=== PATIENT | male | born 1970 | race African-American/Black ===

== ENCOUNTER 2018-03-29 17:21 | Emergency (ER) | payer OTHER ==
[2018-03-29 17:52] VITALS: BP 170/106; PULSE 80; TEMP 98.1; BMI 28.5
[2018-03-29] MEDS ORDERED: CYCLOBENZAPRINE HCL 5 MG TABLET PO ONE (18:21)
[2018-03-29] MEDS ORDERED: KETOROLAC TROMETHAMINE 60 MG/2 ML VIAL IM ONE (18:21)
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
[2018-03-29] MEDS ORDERED: CYCLOBENZAPRINE HCL 10 MG TABLET (FP) ONE (18:23)
[2018-03-29] MEDS ORDERED: KETOROLAC TROMETHAMINE 60 MG/2 ML VIAL ONE (18:24)
[2018-03-30] MEDS ORDERED: CYCLOBENZAPRINE HCL 5 MG TABLET PO ONE (18:22)
--- NOTE | 2018-04-05 10:44 | PDOC ---
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 Neuro intact 04/05/18 11:24 - Medical Decision Making After receiving im Toradol and muscle relaxants feels much improved 04/05/18 11:26
== END 2018-03-29 18:57 | disposition home or self-care (01) ==
LOC: FER 17:21
PROC: 3E0233Z Introduction of Anti-inflammatory into Muscle, Percutaneous Approach (ICD-10-PCS; principal; 2018-03-29)
DX: M54.5 Low back pain (principal); S39.012A Strain of muscle, fascia and tendon of lower back, initial encounter; G89.29 Other chronic pain; X58.XXXA Exposure to other specified factors, initial encounter; Y93.89 Activity, other specified; Y92.9 Unspecified place or not applicable; Y99.0 Civilian activity done for income or pay
CPT/HCPCS: 99282-25

== ENCOUNTER 2018-05-18 10:21 | Emergency (ER) | payer OTHER ==
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
[2018-05-18 10:31] VITALS: BP 140/93; PULSE 81; TEMP 97.8; BMI 29.9
[2018-05-18] MEDS ORDERED: DIPHTH,PERTUSS(ACELL),TET 0.5 ML DISP.SYRIN IM ONE (10:32)
[2018-05-18] MEDS ORDERED: IBUPROFEN 600 MG TABLET (FP) PO ONE ×2 (10:36)
== END 2018-05-18 11:10 | disposition home or self-care (01) ==
LOC: FER 10:21
PROC: 3E0234Z Introduction of Serum, Toxoid and Vaccine into Muscle, Percutaneous Approach (ICD-10-PCS; principal; 2018-05-18)
DX: T22.111A Burn of first degree of right forearm, initial encounter (principal); X17.XXXA Contact with hot engines, machinery and tools, initial encounter; Y93.89 Activity, other specified; Y92.410 Unspecified street and highway as the place of occurrence of the external cause; Y99.0 Civilian activity done for income or pay
CPT/HCPCS: 90715; 99282-25

== ENCOUNTER 2018-06-13 07:33 | Inpatient (IN) | payer OTHER ==
[2018-06-13 08:01] VITALS: BMI 29.9
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
[2018-06-13] MEDS ORDERED: MORPHINE SULFATE 10 MG/1 ML *VIAL ONE (08:20)
[2018-06-13] MEDS ORDERED: SODIUM CHLORIDE 0.9% 1000 ML INFUS.BAG IV ONE (08:21)
[2018-06-13] MEDS ORDERED: morphine CARPU-JECT 4 MG/1 ML DISP.SYRIN IVPUSH ONE ×2 (08:21→11:07)
[2018-06-13 08:43] LABS: BASO % 1.2 % (0-2.0); EOS % 1.6 % (0-4.5); HEMATOCRIT 39.2 % (35.4-49); HEMOGLOBIN 13.9 GM/dL (11.7-16.9); LYMPH % 29.6 % (8-40); MCH 30.9 pg (25.7-33.7); MCHC 35.4 g/dl (32.0-35.9); MEAN CELL VOLUME 87.2 fl (80-96); MEAN PLT VOLUME 10.9 fl (7.5-11.1); MONO % 7.6 % (3.8-10.2); PLATELET COUNT 226 K/MM3 (134-434); RDW 16.4 % (11.9-15.9); WHITE BLOOD COUNT 5.8 K/mm3 (4.0-10.0)
[2018-06-13 09:11] LABS: ACTIVATED PTT 27.5 SECONDS (25.2-36.5); INR 1.09 (0.83-1.09); PROTHROMBIN TIME (PATIENT) 12.3 SEC (9.7-13.0)
[2018-06-13] MEDS ORDERED: PIPERACILLIN/TAZOB 3.375 GM 3.375 GM in DEXTROSE 5%-WATER - 50 ML IVPB ONE ×2 (09:28→21:56)
[2018-06-13] MEDS ORDERED: VANCOMYCIN 1,000 MG in DEXTROSE 5%-WATER - 250 ML IVPB ONE (09:28)
[2018-06-13] MEDS ORDERED: VANCOMYCIN 1 GRAM (PRE-DOCKED) 1,000 MG/250 ML BAG IVPB ONE (09:29)
[2018-06-13] MEDS ORDERED: PIPERACILLIN/TAZOB 3.375 GM 3.375 GM/50 ML BAG IVPB ONE (09:29)
[2018-06-13] MEDS ORDERED: LIDOCAINE HCL 1%, 10 MG/ML (50 mL VIAL) SQ ONE (09:30)
[2018-06-13] MEDS ORDERED: LIDOCAINE HCL 1%, 10 MG/ML (20ML VIAL) ONE (09:32)
[2018-06-13] MEDS ORDERED: LIDOCAINE HCL 2% (20ML MULTI-DOSE VIAL) NR ONE (09:42)
[2018-06-13 10:21] LABS: ANION GAP 8 (8-16); BILIRUBIN,TOTAL 0.4 mg/dL (0.2-1.0); BLOOD UREA NITROGEN 29 mg/dL (7-18); CALCIUM 9.2 mg/dL (8.5-10.1); CHLORIDE 108 mmol/L (98-107); CO2 25 mmol/L (21-32); CREATININE 1.7 mg/dL (0.7-1.3); POTASSIUM 4.7 mmol/L (3.5-5.1); SGOT/AST 30 U/L (15-37); SGPT/ALT 50 U/L (12-78); SODIUM 141 mmol/L (136-145); TOT PROT 7.3 g/dl (6.4-8.2)
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
[2018-06-13 10:36] LABS: ALK PHOS 84 U/L (45-117); GLUCOSE,RANDOM 98 mg/dL (74-106)
[2018-06-13] MEDS ORDERED: MORPHINE SULFATE 2 MG/ML VIAL ONE (11:13)
[2018-06-13] MEDS ORDERED: morphine CARPU-JECT 2 MG/1 ML DISP.SYRIN IVPUSH PRN (11:20)
[2018-06-13] MEDS ORDERED: PANTOPRAZOLE 40 MG TABLET (FP) PO SCH (11:30)
[2018-06-13] MEDS ORDERED: LACTATED RINGERS SOLUTION 1,000 ML IV SCH ×2 (11:30→21:30)
[2018-06-13] MEDS: morphine SULFATE 4 MG/ML VIAL IVPUSH PRN ×2 (12:00→16:19)
[2018-06-13] MEDS ORDERED: ONDANSETRON 4 MG/2 ML VIAL IVPB PRN ×2 (12:38→23:17)
[2018-06-13] MEDS ORDERED: ACETAMINOPHEN 1000 MG/100 ML VIAL (NON FORMULARY) IVPB ONE (13:15)
--- NOTE | 2018-06-13 13:20 | EKG ---
Test Reason : Blood Pressure : / mmHG Vent. Rate : 056 BPM Atrial Rate : 056 BPM P-R Int : 190 ms QRS Dur : 086 ms QT Int : 398 ms P-R-T Axes : 050 034 032 degrees QTc Int : 384 ms SINUS BRADYCARDIA OTHERWISE NORMAL ECG NO PREVIOUS ECGS AVAILABLE Confirmed by KAROLINA MURPHY MD ([id number]) on 06/13/2018 1:20:00 PM Referred By: Confirmed By:KAROLINA MURPHY MD
[2018-06-13] MEDS: DOCUSATE SODIUM 100 MG CAPSULE (FP) PO SCH ×2 (14:00→23:16)
--- NOTE | 2018-06-13 15:43 | CON.ID ---
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 according to the patient his left hand was caught between the trash truck and a 1200 lb box they were emptying and took about half an hour for the hand to be removed he was wearing a protective glove patient was seen by hand surgery and during examination it was found that the patient was unable to move his little finger and also his ring and middle finger having lot of pain . Tetanus is up-to-date. He denies taking anything for pain prior to his arrival. Patient reports having numbness to his left digits but is able to move them. 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) - Alcohol/Substance Use Hx Alcohol Use: Yes (social drinker) History of Substance Use: reports: None - Smoking History Smoking history: Never smoked Have you smoked in the past 12 months: No - Social History ADL: Independent History of Recent Travel: No Home Medications - Allergies Allergies/Adverse Reactions: Allergies Allergy/AdvReac Type Severity Reaction Status Date / Time No Known Drug Allergies Allergy Verified 06/13/18 12:13 - Home Medications Home Medications: Ambulatory Orders NK [No Known Home Medication] 06/13/18 Review of Systems - Review of Systems Constitutional: reports: Other (pain) Eyes: reports: No Symptoms HENT: reports: No Symptoms Neck: reports: No Symptoms Respiratory: reports: No Symptoms Gastrointestinal: reports: No Symptoms Genitourinary: reports: No Symptoms Musculoskeletal: reports: Muscle Pain, Other Integumentary: reports: Wound Neurological: reports: No Symptoms Endocrine: reports: No Symptoms Hematology/Lymphatic: reports: No Symptoms Psychiatric: reports: No Symptoms Physical Exam Vital Signs: Vital Signs Temperature 98.1 F 06/13/18 12:35 Pulse Rate 63 06/13/18 12:35 Respiratory Rate 18 06/13/18 15:00 Blood Pressure 147/95 06/13/18 12:35 O2 Sat by Pulse Oximetry (%) 99 06/13/18 15:00 Constitutional: Yes: Well Nourished, Calm, Mild Distress Eyes: Yes: Conjunctiva Clear HENT: Yes: Atraumatic, Normocephalic Cardiovascular: Yes: Regular Rate and Rhythm Respiratory: Yes: Regular, CTA Bilaterally Gastrointestinal: Yes: Normal Bowel Sounds, Soft Musculoskeletal: Yes: Other Extremities: Yes: Other Wound/Incision: Yes: Dressing Dry and Intact, Reddened Neurological: Yes: Alert, Oriented Psychiatric: Yes: Alert, Oriented Labs: CBC, BMP 06/13/18 08:29 06/13/18 09:35 Imaging - Results Chest X-ray: Report Reviewed, Image Reviewed X-ray: Report Reviewed, Image Reviewed Assessment/Plan Problem List - Problems (1) Crushing injury of left hand, initial encounter Code(s): S67.22XA - CRUSHING INJURY OF LEFT HAND, INITIAL ENCOUNTER (2) Multiple open fractures of phalanx of finger of left hand Code(s): S62.609B - FRACTURE OF UNSP PHALANX OF UNSP FINGER, INIT FOR OPN FX (3) Open fracture of finger of left hand Code(s): S62.609B - FRACTURE OF UNSP PHALANX OF UNSP FINGER, INIT FOR OPN FX Qualifiers: Encounter type: initial encounter Finger: ring finger (4) Mild TBI (traumatic brain injury) Code(s): S06.9X9A - UNSP INTRACRANIAL INJURY W LOC OF UNSP DURATION, INIT Qualifiers: Encounter type: sequela (5) Open fracture of phalanx of finger Code(s): S62.609B - FRACTURE OF UNSP PHALANX OF UNSP FINGER, INIT FOR OPN FX Qualifiers: Encounter type: initial encounter Finger: ring finger plan will start iv abx await for all other reports patient for surgery today await for surgical findings
[2018-06-13] MEDS ORDERED: CLINDAMYCIN 600MG PREMIX IVPB 600 MG/50 ML BAG IVPB SCH (16:15)
[2018-06-13] MEDS ORDERED: PIPERACILLIN/TAZOBACTAM 3.375 GM VIAL IVPB ONE (16:24)
[2018-06-13] MEDS ORDERED: DEXTROSE 5%-WATER - 50 ML IVPB ONE (16:24)
[2018-06-13] MEDS: PIPERACILLIN/TAZOB 3.375 GM 3.375 GM in DEXTROSE 5%-WATER - 50 ML IVPB SCH ×2 (16:25→22:25)
[2018-06-13] MEDS: CLINDAMYCIN 600MG PREMIX IVPB 600 MG/50 ML BAG IVPB SCH ×2 (16:25→23:16)
[2018-06-13] MEDS ORDERED: MIDAZOLAM HCL 2 MG/2 ML SINGLE DOSE VIAL ONE ×2 (16:33)
[2018-06-13] MEDS ORDERED: DEXAMETHASONE SOD PHOSPHATE/PF 10 MG/ML SDV ONE (16:34)
[2018-06-13] MEDS ORDERED: ROPIVACAINE HCL 0.5% 30ML VIAL ONE (16:34)
[2018-06-13] MEDS ORDERED: PROPOFOL 20 ML ONE ×7 (17:56→20:26)
[2018-06-13] MEDS ORDERED: ceFAZolin SODIUM 1 GM VIAL IVPB ONE (18:21)
[2018-06-13] MEDS ORDERED: ceFAZolin SODIUM 1 GM VIAL ONE (18:23)
[2018-06-13] MEDS ORDERED: BACITRACIN 15 GM TUBE TOPICAL OINTMENT ONE (20:47)
[2018-06-13] MEDS ORDERED: ONDANSETRON 4 MG/2 ML VIAL ONE (20:56)
[2018-06-13] MEDS ORDERED: ONDANSETRON 4 MG/2 ML VIAL IVPUSH PRN (21:22)
[2018-06-13] MEDS ORDERED: IBUPROFEN 600 MG TABLET (FP) PO PRN (21:59)
[2018-06-14] MEDS: PIPERACILLIN/TAZOB 3.375 GM 3.375 GM in DEXTROSE 5%-WATER - 50 ML IVPB SCH ×3 (01:16→18:25)
[2018-06-14] MEDS: CLINDAMYCIN 600MG PREMIX IVPB 600 MG/50 ML BAG IVPB SCH ×3 (01:16→18:22)
[2018-06-14] MEDS: morphine SULFATE 4 MG/ML VIAL IVPUSH PRN ×4 (02:53→20:14)
[2018-06-14] MEDS: DOCUSATE SODIUM 100 MG CAPSULE (FP) PO SCH ×3 (06:47→22:00)
[2018-06-14] MEDS ORDERED: PIPERACILLIN/TAZOBACTAM 3.375 GM VIAL IVPB ONE ×2 (09:12→17:06)
[2018-06-14] MEDS ORDERED: DEXTROSE 5%-WATER - 50 ML IVPB ONE ×2 (09:13→17:07)
--- NOTE | 2018-06-14 09:24 | PN ---
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 The patient states that his left was caught between the trash truck and a 1200 lb box they were emptying. He was trapped and took about 30 minutes to get extricated. stable overnight. no complaints. - Current Medication List Current Medications: Active Medications Acetaminophen (Tylenol -) 650 mg PO Q6H PRN PRN Reason: PAIN LEVEL 1-5 Docusate Sodium (Colace -) 100 mg PO TID JT Last Admin: 06/14/18 06:47 Dose: 100 mg Clindamycin Phosphate (Cleocin 600 Mg Premix Ivpb -) 600 mg in 50 mls @ 100 mls /hr IVPB Q8H-IV JT; Protocol Last Admin: 06/14/18 01:16 Dose: Not Given Piperacillin Sod/Tazobactam (Sod 3.375 gm/ Dextrose) 50 mls @ 100 mls/hr IVPB Q8H-IV JT; Protocol Last Admin: 06/14/18 01:16 Dose: Not Given Ibuprofen (Motrin -) 600 mg PO Q6H PRN PRN Reason: PAIN LEVEL 1-5 Last Admin: 06/14/18 02:31 Dose: 600 mg Morphine Sulfate (Morphine Sulfate) 4 mg IVPUSH Q4H PRN PRN Reason: PAIN LEVEL 7 - 10 Last Admin: 06/14/18 06:56 Dose: 4 mg Ondansetron HCl (Zofran Injection) 8 mg IVPB Q6H PRN PRN Reason: NAUSEA Pantoprazole Sodium (Protonix -) 40 mg PO DAILY [facility] - Objective Vital Signs: Vital Signs Temperature 97.7 F 06/14/18 06:00 Pulse Rate 54 L 06/14/18 06:00 Respiratory Rate 20 06/14/18 06:00 Blood Pressure 147/92 06/14/18 06:00 O2 Sat by Pulse Oximetry (%) 96 06/14/18 03:10 Vital Signs Period Temp Pulse Resp BP Sys/Pedro Pulse Ox Last 24 Hr 97.7 F-98.7 F 54-79 13-20 119-191/68-102 96-100 Constitutional: Yes: Well Nourished, No Distress, Calm Eyes: Yes: Conjunctiva Clear, EOM Intact HENT: Yes: Atraumatic, Normocephalic Neck: Yes: Supple, Trachea Midline Cardiovascular: Yes: Regular Rate and Rhythm, S1, S2 Respiratory: Yes: Regular, CTA Bilaterally Gastrointestinal: Yes: Normal Bowel Sounds, Soft Extremities: No: Cool, Cyanosis Integumentary: Yes: Incision. No: Jaundice, Pressure Ulcer Wound/Incision: Yes: Clean/Dry, Well Approximated, Dressing Dry and Intact Neurological: Yes: Alert, Oriented Psychiatric: Yes: Alert, Oriented Labs: CBC, BMP 06/13/18 08:29 06/13/18 09:35 INR, PTT INR 1.09 (0.83-1.09) 06/13/18 08:29 Problem List - Problems (1) Crushing injury of left hand, initial encounter Assessment/Plan: 47yo male with left hand crush injury sustained at work POD#1 s/p Irrigation and Debridement of left hand wound, External fixation of small ring and middle ray, primary repair of radial ulnar digital nerve of ring and small fingers and radial digital artery ring finger. Regular diet OOB an ambulate IV antibiotics per ID Incentive spirometer plan to return to OR monday06/18/2018 for ORIF Analgesia Code(s): S67.22XA - CRUSHING INJURY OF LEFT HAND, INITIAL ENCOUNTER (2) Multiple open fractures of phalanx of finger of left hand Code(s): S62.609B - FRACTURE OF UNSP PHALANX OF UNSP FINGER, INIT FOR OPN FX (3) Open fracture of finger of left hand Code(s): S62.609B - FRACTURE OF UNSP PHALANX OF UNSP FINGER, INIT FOR OPN FX Qualifiers: Encounter type: initial encounter Finger: ring finger (4) Mild TBI (traumatic brain injury) Code(s): S06.9X9A - UNSP INTRACRANIAL INJURY W LOC OF UNSP DURATION, INIT Qualifiers: Encounter type: sequela (5) Open fracture of phalanx of finger Code(s): S62.609B - FRACTURE OF UNSP PHALANX OF UNSP FINGER, INIT FOR OPN FX Qualifiers: Encounter type: initial encounter Finger: ring finger
--- NOTE | 2018-06-14 09:29 | OP ---
Operative Note - Note: Operative Date: 06/13/18 Pre-Operative Diagnosis: Left hand crush injury open fractures and tendon, vessel and nerve involvement Operation: Irrigation and Debridement of left hand wound. External fixation of left small, ring and middle finger ray metacarpal to middle phalanx. Carpal tunnel replease. primary repair of flexor digitorum profundus ring finger. primary repair of radial digital nerve of ring and small finger. primary repair of radial digital artery ring finger Findings: 12cm irregular volar ulnar palmar laceration Massive contamination and edema of the deep palmar space Displaced open fracture Proximal phalanx small, ring and middle 100% Laceration and avulsion flexor digitorum superficailis and profundus tendons ring finger 100% Laceration of radial and ulnar digital artery ring finger 100% Laceration and avulsion of radial digital nerve ring and small TP 250mmHg TT 118 min, 5min reprofusion break, 35min Implants: [employer] Micro External fixtator 3 rays. rods 120mm steel, 80mm steel , 90mm graphite. 6 X 2mm drill pin. 6 X1.6mm drill pin. 4 straight pin couplers. 2 90-degree pin couplers. 6 pin-yusuf couplers Post-Operative Diagnosis: Same as Pre-op Surgeon: Michael Francisco Anesthesiologist/SALES COMMUNICATIONS MANAGER: Dinorah Segovia Anesthesia: MAC (Axillary block ) Estimated Blood Loss (mls): 50 Instrument used (Debridements only): scalpel and scissiors Blood Volume Replaced (mls): 0 Fluid Volume Replaced (mls): 1,200 Operative Report Dictated: Yes
[2018-06-14] MEDS: PANTOPRAZOLE 40 MG TABLET (FP) PO SCH (09:30)
--- NOTE | 2018-06-14 10:59 | PN ---
Progress Note (short form) - Note Progress Note: Anesthesia postop note 47 y/o s/p GA and axillary block for I&D of hand and external fixation of hand fracture POD#1, vss, aaox3, pain well controlled, hand in cast, unable to move or feel touch. No anesthesia complications so far.
[2018-06-14] MEDS ORDERED: ONDANSETRON 4 MG/2 ML VIAL IVPUSH PRN (11:20)
[2018-06-14] MEDS ORDERED: ACETAMINOPHEN 1000 MG/100 ML VIAL (NON FORMULARY) IVPB ONE ×2 (12:00→18:00)
--- NOTE | 2018-06-14 12:14 | OP ---
DATE OF OPERATION: 06/14/2018 PREOPERATIVE DIAGNOSIS: Left hand crush injury with vessel, nerve and tendon involvement. POSTOPERATIVE DIAGNOSIS: Left hand crush injury with vessel, nerve and tendon involvement. PROCEDURE: Irrigation, debridement left hand wound. External fixation left small ring and middle finger ray, metacarpal to middle phalanx. Carpal tunnel release and median nerve neurolysis. Primary repair of flexor digitorum profundus tendon ring finger. Primary repair of radial digital nerve ring and small fingers and primary repair of radial digital artery ring finger. ATTENDING SURGEON: Michael Francisco MD CONSULTING UTILITY FORESTER: None. ANESTHESIOLOGIST: Dinorah Segovia MD ANESTHESIA TYPE: An axillary block with MAC. ESTIMATED BLOOD LOSS: 50 mL INSTRUMENTS USED FOR DEBRIDEMENT: Scalpel and scissors. INTRAVENOUS FLUID REPLACED: Crystalloid 1200 mL. TOURNIQUET TIME: 118 minutes, 5 minute reperfusion break and 35 minutes. TOURNIQUET PRESSURE: 250 mmHg. IMPLANTS: We used the [employer] Micro External Fixator 3 ray system was used. We used rods 80 mm steel, 90 mm graphite, six 2 mm drill pins, six 1.6 mm drill pins, 4 straight pin couplers and two 90-degree pin couplers and 6 pin yusuf couplers. BRIEF FINDINGS: Patient had a 12 mm volar laceration of the palm. It was irregular in border and massively contaminated with edema into the deep palmar space. Patient had a displaced open fracture of the proximal phalanx of the ring, small and middle fingers. Patient had a 100% laceration avulsion of the flexor digitorum superficialis and profundus tendons for the ring fingers. Patient had a 100% laceration of the radial, ulnar and digital artery of the ring finger. Patient had a 100% laceration and avulsion of the radial digital nerve to the ring and small fingers. INDICATIONS: Patient is a 47-year-old male presenting after a crush injury to the left hand, which is his non-dominant hand, when it was crushed. Pinned between a 1200-pound garbage canister in the truck. He was counseled regarding risks, benefits and alternatives to exploration and repair of the injured structures to preserve hand function. He signed informed consent. He was taken for the procedure. PROCEDURE: Patient was brought to the operating room. He was placed in the supine position on the operating table with the left arm extended at 90 degrees perpendicular to the body's midline axis. Patient had lower extremity SCDs placed. Patient had an axillary block on the left arm applied by Anesthesia without incident. He was induced with general anesthesia propofol and was stable throughout the procedure. He received intravenous antibiotics broad spectrum prior to incision. A formal timeout was completed identifying the operative site and procedure proposed with all parties in agreement. We began first with the hand in volar position. X-ray documentation of the fractures of the proximal phalanx of the ring, small and middle fingers. We then turned our attention to the volar crush injury, which had a large laceration. It was 12 mm in length maximum diameter. It was irregular and there was exposure of the deep palmar space. We turned our attention to debridement of what appeared to be dirty debris, metal and skin. Devitalized tissue was debrided with a scalpel and scissor. The wound was irrigated copiously with sterile irrigation fluid. We also noted there was a dorsal laceration over the metacarpophalangeal joint for the middle finger. Both wounds were copiously irrigated and debrided of devitalized tissue, skin and foreign material. We then turned our attention to the volar aspect of the palm again and looked at the palmar space, which appeared to have hematoma and edema. Decision was made to release the carpal tunnel to decompress the massive swelling and the proximal tracking of this infection. We made a small volar incision at the outlet of the carpal tunnel in the palm and the ring fingers passed in flexion. This was incised with a 15 blade scalpel, deepened and went through the subcutaneous tissue. Care was then taken to open the outlet of the palmar fascia for the carpal tunnel. Once open, a freer elevator was passed between the glabellar skin the transverse carpal ligament and then again under the transverse carpal ligament freeing the tendons. Once isolated, the transverse carpal ligament was identified and divided 100%. The median nerve did appear to have some synovitis and hematoma, which had tracked proximally. This was debrided and the nerve was neurolysed. At which point we turned our attention back to the initial incision and Greg extensions were made to explore the damage. There appeared to be displaced fractures of the proximal small fingers with obvious deformity. There was an avulsion laceration 100% of the flexor digitorum profundus and superficialis tendons of the ring finger. The superficialis tendon cannot be repaired primarily to preserve function and the decision was made to debride it. We then turned our attention to the additional injured structures. There was devascularization of the ring finger. The ulnar and radial digital arteries were thrombosed and retracted. There was a small amount of collateral flow. We turned our attention to repairing the radial digital artery for reperfusion. An arteriotomy was made and the artery was thrombectomized, at which point we turned our attention to flushing with heparinized saline proximally and distally until there was clearing of the distal aspect. In similar fashion, the proximal end was identified and cleaned and thrombectomized. We then performed a microscopic primary repair of the digital artery. Once the finger was reperfused, for a period of 15 minutes, we then turned our attention to bony fixation. With the scaffold with the rays stretched to length, the middle, ring and small fingers stretched to length and appropriate allowance made for our arterial repair protecting it at all times. We placed drill pins in the metacarpal for each ray, the middle, ring and small fingers; 2 mm drill pins were used proximally in the metacarpal and distally in the middle phalanx for each ray; 1.6 mm drill pins were used. A parallel guide was used at each site to place these drill pins. This was done under direct visualization with hand power. Care was taken to make only a small skin lydia for the drill pin and then guided into place using OrthoScan Mini C-arm to allow for proper positioning. Once the drill pins were placed, pin couplers were placed and then they were spanned with rods for external fixation in the neutral extended position across the metacarpal to the middle phalanx. Once complete, we turned our attention back to repairing the remaining structures. The arterial repair did appear to be viable. We turned our attention to repairing then the avulsed and lacerated nerves. The ring finger and small finger had radial digital nerves, which were 100% laceration. The ends were approximated after debridement using high powered loop guidance and we then turned our attention to finally repairing the flexor digitorum profundus tendon for the ring finger as well. It appeared, once all structures were repaired, the wounds were closed with interrupted 4-0 nylon. The maximum damage was to the ring finger. Once the tourniquet was relieved for the final time, after a 5-minute reperfusion break at 118 minutes, the ring finger did appear perfused. The capillary refill was less than 2 seconds. We asked for a heparin bolus to be administered, 3000 units. We turned our attention then to cleaning the skin. The patient was placed was into a volar resting splint for soft tissue protection. The patient was stable throughout the procedure, tolerated the procedure well, was returned to Recovery in stable position. He will be admitted for intravenous antibiotic administration with the plan to return to the operating room and conversion to internal fixation after 4 days. Planned revision surgery is June 18, 2018. Michael Francisco MD 1 [id number]
[2018-06-14] MEDS: oxyCODONE HCL 5 MG TABLET PO PRN (14:28)
--- NOTE | 2018-06-14 17:03 | PN ---
Progress Note, Physician History of Present Illness: patient stable pain main issues no other complaints dressing on the hand dry intact - Current Medication List Current Medications: Active Medications Acetaminophen (Tylenol -) 650 mg PO Q6H PRN PRN Reason: PAIN LEVEL 1-5 Acetaminophen (Ofirmev Injection -) 1,000 mg IVPB ONCE ONE Stop: 06/14/18 18:01 Docusate Sodium (Colace -) 100 mg PO TID JT Last Admin: 06/14/18 14:28 Dose: 100 mg Clindamycin Phosphate (Cleocin 600 Mg Premix Ivpb -) 600 mg in 50 mls @ 100 mls /hr IVPB Q8H-IV JT; Protocol Last Admin: 06/14/18 09:29 Dose: 100 mls/hr Piperacillin Sod/Tazobactam (Sod 3.375 gm/ Dextrose) 50 mls @ 100 mls/hr IVPB Q8H-IV JT; Protocol Last Admin: 06/14/18 09:29 Dose: 100 mls/hr Morphine Sulfate (Morphine Sulfate) 4 mg IVPUSH Q4H PRN PRN Reason: PAIN LEVEL 7 - 10 Last Admin: 06/14/18 16:18 Dose: 4 mg Ondansetron HCl (Zofran Injection) 8 mg IVPB Q6H PRN PRN Reason: NAUSEA Oxycodone HCl (Roxicodone -) 5 mg PO Q6H PRN PRN Reason: PAIN LEVEL 1-5 Last Admin: 06/14/18 14:28 Dose: 5 mg Pantoprazole Sodium (Protonix -) 40 mg PO DAILY JT Last Admin: 06/14/18 09:30 Dose: 40 mg - Objective Vital Signs: Vital Signs Temperature 98.7 F 06/14/18 14:00 Pulse Rate 62 06/14/18 14:00 Respiratory Rate 18 06/14/18 14:00 Blood Pressure 174/79 06/14/18 14:00 O2 Sat by Pulse Oximetry (%) 96 06/14/18 03:10 Constitutional: Yes: No Distress, Calm Cardiovascular: Yes: Regular Rate and Rhythm Respiratory: Yes: Regular, CTA Bilaterally Gastrointestinal: Yes: Normal Bowel Sounds, Soft Musculoskeletal: Yes: WNL Extremities: Yes: Other Wound/Incision: Yes: Dressing Dry and Intact Neurological: Yes: Alert, Oriented Psychiatric: Yes: Alert, Oriented Labs: CBC, BMP 06/13/18 08:29 06/13/18 09:35 INR, PTT INR 1.09 (0.83-1.09) 06/13/18 08:29 Assessment/Plan Problem List - Problems (1) Crushing injury of left hand, initial encounter Code(s): S67.22XA - CRUSHING INJURY OF LEFT HAND, INITIAL ENCOUNTER (2) Multiple open fractures of phalanx of finger of left hand Code(s): S62.609B - FRACTURE OF UNSP PHALANX OF UNSP FINGER, INIT FOR OPN FX (3) Open fracture of finger of left hand Code(s): S62.609B - FRACTURE OF UNSP PHALANX OF UNSP FINGER, INIT FOR OPN FX Qualifiers: Encounter type: initial encounter Finger: ring finger (4) Mild TBI (traumatic brain injury) Code(s): S06.9X9A - UNSP INTRACRANIAL INJURY W LOC OF UNSP DURATION, INIT Qualifiers: Encounter type: sequela (5) Open fracture of phalanx of finger Code(s): S62.609B - FRACTURE OF UNSP PHALANX OF UNSP FINGER, INIT FOR OPN FX Qualifiers: Encounter type: initial encounter Finger: ring finger plan continue iv abx will d/w surgery wound care pain control
[2018-06-15] MEDS ORDERED: PIPERACILLIN/TAZOBACTAM 3.375 GM VIAL IVPB ONE ×3 (00:14→18:49)
[2018-06-15] MEDS ORDERED: DEXTROSE 5%-WATER - 50 ML IVPB ONE ×3 (00:14→18:51)
[2018-06-15] MEDS: CLINDAMYCIN 600MG PREMIX IVPB 600 MG/50 ML BAG IVPB SCH ×3 (01:43→18:54)
[2018-06-15] MEDS: PIPERACILLIN/TAZOB 3.375 GM 3.375 GM in DEXTROSE 5%-WATER - 50 ML IVPB SCH ×3 (02:27→21:29)
[2018-06-15] MEDS: morphine SULFATE 4 MG/ML VIAL IVPUSH PRN ×3 (03:22→18:54)
[2018-06-15] MEDS: DOCUSATE SODIUM 100 MG CAPSULE (FP) PO SCH ×3 (05:54→21:30)
[2018-06-15] MEDS: ACETAMINOPHEN 325 MG TABLET (FP) PO PRN ×2 (05:57→11:55)
[2018-06-15] MEDS: oxyCODONE HCL 5 MG TABLET PO PRN ×2 (05:58→11:55)
[2018-06-15] MEDS: PANTOPRAZOLE 40 MG TABLET (FP) PO SCH (09:17)
--- NOTE | 2018-06-15 10:23 | PN ---
Progress Note, Physician History of Present Illness: patient doing well comfortable - Current Medication List Current Medications: Active Medications Acetaminophen (Tylenol -) 650 mg PO Q6H PRN PRN Reason: PAIN LEVEL 1-5 Last Admin: 06/15/18 05:57 Dose: 650 mg Docusate Sodium (Colace -) 100 mg PO TID JT Last Admin: 06/15/18 05:54 Dose: 100 mg Clindamycin Phosphate (Cleocin 600 Mg Premix Ivpb -) 600 mg in 50 mls @ 100 mls /hr IVPB Q8H-IV JT; Protocol Last Admin: 06/15/18 09:16 Dose: 100 mls/hr Piperacillin Sod/Tazobactam (Sod 3.375 gm/ Dextrose) 50 mls @ 100 mls/hr IVPB Q8H-IV JT; Protocol Last Admin: 06/15/18 09:17 Dose: 100 mls/hr Morphine Sulfate (Morphine Sulfate) 4 mg IVPUSH Q4H PRN PRN Reason: PAIN LEVEL 7 - 10 Last Admin: 06/15/18 08:55 Dose: 4 mg Ondansetron HCl (Zofran Injection) 8 mg IVPB Q6H PRN PRN Reason: NAUSEA Oxycodone HCl (Roxicodone -) 5 mg PO Q6H PRN PRN Reason: PAIN LEVEL 1-5 Last Admin: 06/15/18 05:58 Dose: 5 mg Pantoprazole Sodium (Protonix -) 40 mg PO DAILY [facility] Last Admin: 06/15/18 09:17 Dose: 40 mg - Objective Vital Signs: Vital Signs Temperature 98.1 F 06/15/18 06:00 Pulse Rate 56 L 06/14/18 22:00 Respiratory Rate 18 06/14/18 22:00 Blood Pressure 127/58 06/14/18 22:00 O2 Sat by Pulse Oximetry (%) 96 06/14/18 03:10 Constitutional: Yes: No Distress, Calm Cardiovascular: Yes: Regular Rate and Rhythm Respiratory: Yes: Regular, CTA Bilaterally Gastrointestinal: Yes: Normal Bowel Sounds, Soft Musculoskeletal: Yes: WNL Extremities: Yes: Other Wound/Incision: Yes: Dressing Dry and Intact Neurological: Yes: Alert, Oriented Psychiatric: Yes: Alert, Oriented Labs: CBC, BMP 06/13/18 08:29 06/13/18 09:35 INR, PTT INR 1.09 (0.83-1.09) 06/13/18 08:29 Assessment/Plan Problem List - Problems (1) Crushing injury of left hand, initial encounter Code(s): S67.22XA - CRUSHING INJURY OF LEFT HAND, INITIAL ENCOUNTER (2) Multiple open fractures of phalanx of finger of left hand Code(s): S62.609B - FRACTURE OF UNSP PHALANX OF UNSP FINGER, INIT FOR OPN FX (3) Open fracture of finger of left hand Code(s): S62.609B - FRACTURE OF UNSP PHALANX OF UNSP FINGER, INIT FOR OPN FX Qualifiers: Encounter type: initial encounter Finger: ring finger (4) Mild TBI (traumatic brain injury) Code(s): S06.9X9A - UNSP INTRACRANIAL INJURY W LOC OF UNSP DURATION, INIT Qualifiers: Encounter type: sequela (5) Open fracture of phalanx of finger Code(s): S62.609B - FRACTURE OF UNSP PHALANX OF UNSP FINGER, INIT FOR OPN FX Qualifiers: Encounter type: initial encounter Finger: ring finger plan continue iv abx will d/w surgery wound care pain control change of dressing probably today
--- NOTE | 2018-06-15 11:04 | PN ---
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 The patient states that his left was caught between the trash truck and a 1200 lb box they were emptying. He was trapped and took about 30 minutes to get extricated. stable overnight. no complaints. - Current Medication List Current Medications: Active Medications Acetaminophen (Tylenol -) 650 mg PO Q6H PRN PRN Reason: PAIN LEVEL 1-5 Last Admin: 06/15/18 05:57 Dose: 650 mg Docusate Sodium (Colace -) 100 mg PO TID JT Last Admin: 06/15/18 05:54 Dose: 100 mg Clindamycin Phosphate (Cleocin 600 Mg Premix Ivpb -) 600 mg in 50 mls @ 100 mls /hr IVPB Q8H-IV JT; Protocol Last Admin: 06/15/18 09:16 Dose: 100 mls/hr Piperacillin Sod/Tazobactam (Sod 3.375 gm/ Dextrose) 50 mls @ 100 mls/hr IVPB Q8H-IV JT; Protocol Last Admin: 06/15/18 09:17 Dose: 100 mls/hr Morphine Sulfate (Morphine Sulfate) 4 mg IVPUSH Q4H PRN PRN Reason: PAIN LEVEL 7 - 10 Last Admin: 06/15/18 08:55 Dose: 4 mg Ondansetron HCl (Zofran Injection) 8 mg IVPB Q6H PRN PRN Reason: NAUSEA Oxycodone HCl (Roxicodone -) 5 mg PO Q6H PRN PRN Reason: PAIN LEVEL 1-5 Last Admin: 06/15/18 05:58 Dose: 5 mg Pantoprazole Sodium (Protonix -) 40 mg PO DAILY JT Last Admin: 06/15/18 09:17 Dose: 40 mg - Objective Vital Signs: Vital Signs Temperature 98.1 F 06/15/18 06:00 Pulse Rate 56 L 06/14/18 22:00 Respiratory Rate 18 06/15/18 09:00 Blood Pressure 127/58 06/14/18 22:00 O2 Sat by Pulse Oximetry (%) 96 06/14/18 03:10 Vital Signs Period Temp Pulse Resp BP Sys/Pedro Pulse Ox Last 24 Hr 97.5 F-98.7 F 56-62 - 127-174/58-85 Intake & Output 06/14/18 06/15/18 06/15/18 23:59 07:59 15:59 Intake Total 200 300 Output Total 600 Balance 200 -600 300 Intake: Oral 200 300 Output: Urine 600 Void 600 Other: Voiding Method Urinal Urinal # Unmeasured Voids Void 1 Constitutional: Yes: Well Nourished, No Distress, Calm Eyes: Yes: Conjunctiva Clear, EOM Intact HENT: Yes: Atraumatic, Normocephalic Neck: Yes: Supple, Trachea Midline Cardiovascular: Yes: Regular Rate and Rhythm, S1, S2 Respiratory: Yes: Regular, CTA Bilaterally Gastrointestinal: Yes: Normal Bowel Sounds, Soft ...Rectal Exam: Yes: Deferred Genitourinary: No: CVA Tenderness - Left, CVA Tenderness - Right Extremities: No: Cool, Cyanosis Edema: No Peripheral Pulses WNL: Yes Peripheral Pulses: Left Radial: 2+, Right Radial: 2+, Left Doralis Pedis: 2+, Right Dorsalis Pedis: 2+ Integumentary: No: Jaundice, Rash, Skin Tear Neurological: Yes: Alert, Oriented Psychiatric: Yes: Alert, Oriented Labs: CBC, BMP 06/13/18 08:29 06/13/18 09:35 INR, PTT INR 1.09 (0.83-1.09) 06/13/18 08:29 Problem List - Problems (1) Crushing injury of left hand, initial encounter Assessment/Plan: 47yo male with left hand crush injury sustained at work POD#2 s/p Irrigation and Debridement of left hand wound, External fixation of small ring and middle ray, primary repair of radial ulnar digital nerve of ring and small fingers and radial digital artery ring finger. Regular diet OOB an ambulate IV antibiotics per ID Incentive spirometer plan to return to OR monday06/18/2018 for Removal of hardware left small, ring and middle proximal phalanx and ORIF Discussed with patient risks, benefits and alternatives to aforementioned procedure, prossible repair of tendons, vessels and nerves including but not limited to bleeding, infection, loss of fucntion, amputation, injury to adjacent structures, need for further procedures, ; alternatives include antibiotics, delayed or no surgery - risks of this include failure of nonoperative therapy, sepsis, loss of function, . Patient desires to proceed with operation - will take to OR for above. Informed consent signed for same. Code(s): S67.22XA - CRUSHING INJURY OF LEFT HAND, INITIAL ENCOUNTER (2) Multiple open fractures of phalanx of finger of left hand Code(s): S62.609B - FRACTURE OF UNSP PHALANX OF UNSP FINGER, INIT FOR OPN FX (3) Open fracture of finger of left hand Code(s): S62.609B - FRACTURE OF UNSP PHALANX OF UNSP FINGER, INIT FOR OPN FX Qualifiers: Encounter type: initial encounter Finger: ring finger (4) Mild TBI (traumatic brain injury) Code(s): S06.9X9A - UNSP INTRACRANIAL INJURY W LOC OF UNSP DURATION, INIT Qualifiers: Encounter type: sequela (5) Open fracture of phalanx of finger Code(s): S62.609B - FRACTURE OF UNSP PHALANX OF UNSP FINGER, INIT FOR OPN FX Qualifiers: Encounter type: initial encounter Finger: ring finger
[2018-06-15] MEDS ORDERED: ACETAMINOPHEN 1000 MG/100 ML VIAL (NON FORMULARY) IVPB ONE ×2 (13:24→20:00)
[2018-06-16] MEDS: CLINDAMYCIN 600MG PREMIX IVPB 600 MG/50 ML BAG IVPB SCH ×3 (01:26→17:31)
[2018-06-16] MEDS: PIPERACILLIN/TAZOB 3.375 GM 3.375 GM in DEXTROSE 5%-WATER - 50 ML IVPB SCH ×3 (01:27→18:03)
[2018-06-16] MEDS: morphine SULFATE 4 MG/ML VIAL IVPUSH PRN ×2 (02:11→06:09)
[2018-06-16] MEDS: DOCUSATE SODIUM 100 MG CAPSULE (FP) PO SCH ×3 (06:08→21:02)
[2018-06-16] MEDS ORDERED: PIPERACILLIN/TAZOBACTAM 3.375 GM VIAL IVPB ONE ×4 (09:16→23:40)
[2018-06-16] MEDS ORDERED: DEXTROSE 5%-WATER - 50 ML IVPB ONE ×3 (09:16→23:41)
[2018-06-16] MEDS: ACETAMINOPHEN 325 MG TABLET (FP) PO PRN (09:34)
[2018-06-16] MEDS: oxyCODONE HCL 5 MG TABLET PO PRN (09:35)
[2018-06-16] MEDS: PANTOPRAZOLE 40 MG TABLET (FP) PO SCH (09:36)
--- NOTE | 2018-06-16 09:51 | PN ---
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 The patient states that his left was caught between the trash truck and a 1200 lb box they were emptying. He was trapped and took about 30 minutes to get extricated. stable overnight. no complaints. - Current Medication List Current Medications: Active Medications Acetaminophen (Tylenol -) 650 mg PO Q6H PRN PRN Reason: PAIN LEVEL 1-5 Last Admin: 06/16/18 09:34 Dose: 650 mg Docusate Sodium (Colace -) 100 mg PO TID JT Last Admin: 06/16/18 06:08 Dose: Not Given Clindamycin Phosphate (Cleocin 600 Mg Premix Ivpb -) 600 mg in 50 mls @ 100 mls /hr IVPB Q8H-IV JT; Protocol Last Admin: 06/16/18 09:36 Dose: 100 mls/hr Piperacillin Sod/Tazobactam (Sod 3.375 gm/ Dextrose) 50 mls @ 100 mls/hr IVPB Q8H-IV JT; Protocol Last Admin: 06/16/18 01:27 Dose: 100 mls/hr Morphine Sulfate (Morphine Sulfate) 4 mg IVPUSH Q4H PRN PRN Reason: PAIN LEVEL 7 - 10 Last Admin: 06/16/18 06:09 Dose: 4 mg Ondansetron HCl (Zofran Injection) 8 mg IVPB Q6H PRN PRN Reason: NAUSEA Oxycodone HCl (Roxicodone -) 5 mg PO Q6H PRN PRN Reason: PAIN LEVEL 1-5 Last Admin: 06/16/18 09:35 Dose: 5 mg Pantoprazole Sodium (Protonix -) 40 mg PO DAILY JT Last Admin: 06/16/18 09:36 Dose: 40 mg - Objective Vital Signs: Vital Signs Temperature 98.3 F 06/16/18 08:53 Pulse Rate 68 06/16/18 08:53 Respiratory Rate 101 H 06/16/18 08:53 Blood Pressure 160/94 06/16/18 08:53 O2 Sat by Pulse Oximetry (%) 98 06/15/18 20:11 Vital Signs Period Temp Pulse Resp BP Sys/Pedro Pulse Ox Last 24 Hr 98 F-98.5 F 57-82 18-101 125-160/65-101 98 Intake & Output 06/15/18 06/16/18 06/16/18 23:59 07:59 15:59 Intake Total 400 750 Output Total 900 Balance 400 -150 Intake: IVPB 150 350 Oral 250 400 Output: Urine 900 Void 900 Other: Voiding Method Urinal Toilet # Unmeasured Voids Void 2 2 # Bowel Movements 3 Constitutional: Yes: Well Nourished, No Distress, Calm Eyes: Yes: Conjunctiva Clear, EOM Intact HENT: Yes: Atraumatic, Normocephalic Neck: Yes: Supple, Trachea Midline Cardiovascular: Yes: Regular Rate and Rhythm, S1, S2 Respiratory: Yes: Regular, CTA Bilaterally Gastrointestinal: Yes: Normal Bowel Sounds, Soft. No: Tenderness ...Rectal Exam: Yes: Deferred Genitourinary: No: CVA Tenderness - Left, CVA Tenderness - Right Musculoskeletal: No: Muscle Pain, Muscle Weakness Extremities: No: Cool Edema: Yes Edema: LUE: 1+ Peripheral Pulses WNL: Yes Peripheral Pulses: Left Radial: 2+, Right Radial: 2+, Left Doralis Pedis: 2+, Right Dorsalis Pedis: 2+ Integumentary: No: Jaundice, Rash, Skin Tear Wound/Incision: Yes: Clean/Dry, Well Approximated, Sutures Intact, Dressing Dry and Intact, Unapproximated Neurological: Yes: Alert, Oriented Psychiatric: Yes: Alert, Oriented Labs: CBC, BMP 06/13/18 08:29 06/13/18 09:35 INR, PTT INR 1.09 (0.83-1.09) 06/13/18 08:29 Problem List - Problems (1) Crushing injury of left hand, initial encounter Assessment/Plan: 47yo male with left hand crush injury sustained at work POD#3 s/p Irrigation and Debridement of left hand wound, External fixation of small ring and middle ray, primary repair of radial ulnar digital nerve of ring and small fingers and radial digital artery ring finger. Regular diet OOB an ambulate IV antibiotics per ID Incentive spirometer plan to return to OR monday06/18/2018 for Removal of hardware left small, ring and middle proximal phalanx and ORIF Discussed with patient risks, benefits and alternatives to aforementioned procedure, prossible repair of tendons, vessels and nerves including but not limited to bleeding, infection, loss of fucntion, amputation, injury to adjacent structures, need for further procedures, ; alternatives include antibiotics, delayed or no surgery - risks of this include failure of nonoperative therapy, sepsis, loss of function, . Patient desires to proceed with operation - will take to OR for above. Informed consent signed for same. Code(s): S67.22XA - CRUSHING INJURY OF LEFT HAND, INITIAL ENCOUNTER (2) Multiple open fractures of phalanx of finger of left hand Code(s): S62.609B - FRACTURE OF UNSP PHALANX OF UNSP FINGER, INIT FOR OPN FX (3) Open fracture of finger of left hand Code(s): S62.609B - FRACTURE OF UNSP PHALANX OF UNSP FINGER, INIT FOR OPN FX Qualifiers: Encounter type: initial encounter Finger: ring finger (4) Mild TBI (traumatic brain injury) Code(s): S06.9X9A - UNSP INTRACRANIAL INJURY W LOC OF UNSP DURATION, INIT Qualifiers: Encounter type: sequela (5) Open fracture of phalanx of finger Code(s): S62.609B - FRACTURE OF UNSP PHALANX OF UNSP FINGER, INIT FOR OPN FX Qualifiers: Encounter type: initial encounter Finger: ring finger
[2018-06-16] MEDS ORDERED: ACETAMINOPHEN 1000 MG/100 ML VIAL (NON FORMULARY) IVPB ONE ×2 (09:52→18:00)
--- NOTE | 2018-06-16 11:07 | PN ---
Progress Note, Physician History of Present Illness: Infectious Disease Progress Note: Pt seen and examined. Events reviewed and case d/w surgery. s/p irrigation/ debridement of Lt hand POD#3. Pt c/o pain in Lt hand but no other specific complaints at this time. - Current Medication List Current Medications: Active Medications Acetaminophen (Tylenol -) 650 mg PO Q6H PRN PRN Reason: PAIN LEVEL 1-5 Last Admin: 06/16/18 09:34 Dose: 650 mg Acetaminophen (Ofirmev Injection -) 1,000 mg IVPB ONCE ONE Stop: 06/16/18 09:53 Acetaminophen (Ofirmev Injection -) 1,000 mg IVPB ONCE ONE Stop: 06/16/18 18:01 Diphenhydramine HCl (Benadryl -) 50 mg PO HS PRN PRN Reason: INSOMNIA Docusate Sodium (Colace -) 100 mg PO TID JT Last Admin: 06/16/18 06:08 Dose: Not Given Clindamycin Phosphate (Cleocin 600 Mg Premix Ivpb -) 600 mg in 50 mls @ 100 mls /hr IVPB Q8H-IV JT; Protocol Last Admin: 06/16/18 09:36 Dose: 100 mls/hr Piperacillin Sod/Tazobactam (Sod 3.375 gm/ Dextrose) 50 mls @ 100 mls/hr IVPB Q8H-IV JT; Protocol Last Admin: 06/16/18 10:35 Dose: 100 mls/hr Lactobacillus Acidophilus (Bacid -) 1 tab PO DAILY JT Lorazepam (Ativan -) 1 mg PO BID PRN PRN Reason: ANXIETY Morphine Sulfate (Morphine Sulfate) 4 mg IVPUSH Q4H PRN PRN Reason: PAIN LEVEL 7 - 10 Last Admin: 06/16/18 06:09 Dose: 4 mg Ondansetron HCl (Zofran Injection) 8 mg IVPB Q6H PRN PRN Reason: NAUSEA Oxycodone HCl (Roxicodone -) 5 mg PO Q6H PRN PRN Reason: PAIN LEVEL 1-5 Last Admin: 06/16/18 09:35 Dose: 5 mg Pantoprazole Sodium (Protonix -) 40 mg PO DAILY JT Last Admin: 06/16/18 09:36 Dose: 40 mg - Objective Vital Signs: Vital Signs Temperature 98.3 F 06/16/18 08:53 Pulse Rate 68 06/16/18 08:53 Respiratory Rate 101 H 06/16/18 08:53 Blood Pressure 160/94 06/16/18 08:53 O2 Sat by Pulse Oximetry (%) 98 06/15/18 20:11 Constitutional: Yes: No Distress Cardiovascular: Yes: Regular Rate and Rhythm Respiratory: Yes: Regular Gastrointestinal: Yes: Normal Bowel Sounds, Soft Genitourinary: Yes: WNL Wound/Incision: Yes: Dressing Dry and Intact, Other (Lt hand hardware, Lt hand edema/tenderness) Neurological: Yes: Alert, Oriented Labs: CBC, BMP 06/13/18 08:29 06/13/18 09:35 INR, PTT INR 1.09 (0.83-1.09) 06/13/18 08:29 Problem List - Problems (1) Crushing injury of left hand, initial encounter Code(s): S67.22XA - CRUSHING INJURY OF LEFT HAND, INITIAL ENCOUNTER (2) Hand laceration Code(s): S61.419A - LACERATION WITHOUT FOREIGN BODY OF UNSP HAND, INIT ENCNTR (3) Mild TBI (traumatic brain injury) Code(s): S06.9X9A - UNSP INTRACRANIAL INJURY W LOC OF UNSP DURATION, INIT Qualifiers: Encounter type: sequela (4) Multiple open fractures of phalanx of finger of left hand Code(s): S62.609B - FRACTURE OF UNSP PHALANX OF UNSP FINGER, INIT FOR OPN FX Assessment/Plan 47 y.o. 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 current antibiotics
[2018-06-16] MEDS: LACTOBACILLUS ACIDOPHILUS 1 TABLET PO SCH (11:50)
[2018-06-16] MEDS: LORazepam 1 MG TABLET PO PRN (11:56)
[2018-06-16] MEDS: diphenhydrAMINE HCL 25 MG CAPSULE (FP) PO PRN (22:16)
[2018-06-17] MEDS: CLINDAMYCIN 600MG PREMIX IVPB 600 MG/50 ML BAG IVPB SCH ×3 (01:16→17:03)
[2018-06-17] MEDS: PIPERACILLIN/TAZOB 3.375 GM 3.375 GM in DEXTROSE 5%-WATER - 50 ML IVPB SCH ×3 (01:16→17:50)
[2018-06-17] MEDS: morphine SULFATE 4 MG/ML VIAL IVPUSH PRN ×3 (02:06→10:29)
[2018-06-17] MEDS: DOCUSATE SODIUM 100 MG CAPSULE (FP) PO SCH ×3 (06:06→22:23)
[2018-06-17 07:58] LABS: BASO % 0.4 % (0-2.0); EOS % 2.5 % (0-4.5); HEMATOCRIT 39.5 % (35.4-49); HEMOGLOBIN 13.7 GM/dL (11.7-16.9); LYMPH % 25.3 % (8-40); MCH 30.8 pg (25.7-33.7); MCHC 34.8 g/dl (32.0-35.9); MEAN CELL VOLUME 88.5 fl (80-96); MONO % 7.3 % (3.8-10.2); NEUT % 64.5 % (42.8-82.8); PLATELET COUNT 203 K/MM3 (134-434); RBC 4.46 M/mm3 (4.00-5.60); RDW 16.2 % (11.9-15.9); WHITE BLOOD COUNT 7.2 K/mm3 (4.0-10.0)
[2018-06-17 08:15] LABS: INR 1.11 (0.83-1.09); PROTHROMBIN TIME (PATIENT) 12.5 SEC (9.7-13.0)
[2018-06-17 08:34] LABS: ALBUMIN 3.5 g/dl (3.4-5.0); ANION GAP 8 (8-16); BLOOD UREA NITROGEN 22 mg/dL (7-18); CALCIUM 9.1 mg/dL (8.5-10.1); CHLORIDE 105 mmol/L (98-107); CO2 29 mmol/L (21-32); GLUCOSE,RANDOM 82 mg/dL (74-106); POTASSIUM 4.3 mmol/L (3.5-5.1); SODIUM 142 mmol/L (136-145)
[2018-06-17 08:38] LABS: ALK PHOS 79 U/L (45-117); BILIRUBIN,TOTAL 0.4 mg/dL (0.2-1.0); CREATININE 1.5 mg/dL (0.7-1.3); SGOT/AST 17 U/L (15-37); SGPT/ALT 35 U/L (12-78); TOT PROT 7.4 g/dl (6.4-8.2)
[2018-06-17] MEDS ORDERED: PIPERACILLIN/TAZOBACTAM 3.375 GM VIAL IVPB ONE ×2 (09:22→16:45)
[2018-06-17] MEDS ORDERED: DEXTROSE 5%-WATER - 50 ML IVPB ONE ×2 (09:22→16:45)
[2018-06-17] MEDS: LACTOBACILLUS ACIDOPHILUS 1 TABLET PO SCH (09:25)
[2018-06-17] MEDS: PANTOPRAZOLE 40 MG TABLET (FP) PO SCH (09:25)
--- NOTE | 2018-06-17 11:28 | PN ---
Progress Note, Physician History of Present Illness: Infectious Disease Progress Note: Pt seen and examined. Remains afebrile, without acute distress. Reports loose BMs since yesterday. Stool softeners were discontinued. Had one loose BM today but no abd cramping/pain. - Current Medication List Current Medications: Active Medications Acetaminophen (Tylenol -) 650 mg PO Q6H PRN PRN Reason: PAIN LEVEL 1-5 Last Admin: 06/16/18 09:34 Dose: 650 mg Diphenhydramine HCl (Benadryl -) 50 mg PO HS PRN PRN Reason: INSOMNIA Last Admin: 06/16/18 22:16 Dose: 50 mg Docusate Sodium (Colace -) 100 mg PO TID JT Last Admin: 06/17/18 06:06 Dose: Not Given Clindamycin Phosphate (Cleocin 600 Mg Premix Ivpb -) 600 mg in 50 mls @ 100 mls /hr IVPB Q8H-IV JT; Protocol Last Admin: 06/17/18 10:29 Dose: 100 mls/hr Piperacillin Sod/Tazobactam (Sod 3.375 gm/ Dextrose) 50 mls @ 100 mls/hr IVPB Q8H-IV JT; Protocol Last Admin: 06/17/18 09:27 Dose: 100 mls/hr Lactobacillus Acidophilus (Bacid -) 1 tab PO DAILY JT Last Admin: 06/17/18 09:25 Dose: 1 tab Lorazepam (Ativan -) 1 mg PO BID PRN PRN Reason: ANXIETY Last Admin: 06/16/18 11:56 Dose: 1 mg Morphine Sulfate (Morphine Sulfate) 4 mg IVPUSH Q4H PRN PRN Reason: PAIN LEVEL 7 - 10 Last Admin: 06/17/18 10:29 Dose: 4 mg Ondansetron HCl (Zofran Injection) 8 mg IVPB Q6H PRN PRN Reason: NAUSEA Oxycodone HCl (Roxicodone -) 5 mg PO Q6H PRN PRN Reason: PAIN LEVEL 1-5 Last Admin: 06/16/18 09:35 Dose: 5 mg Pantoprazole Sodium (Protonix -) 40 mg PO DAILY JT Last Admin: 06/17/18 09:25 Dose: 40 mg - Objective Vital Signs: Vital Signs Temperature 97.6 F 06/17/18 06:00 Pulse Rate 18 L 06/17/18 06:00 Respiratory Rate 18 06/17/18 06:00 Blood Pressure 144/102 06/17/18 06:00 O2 Sat by Pulse Oximetry (%) 98 06/16/18 21:00 Constitutional: Yes: No Distress, Calm Cardiovascular: Yes: Regular Rate and Rhythm Respiratory: Yes: Regular Gastrointestinal: Yes: Normal Bowel Sounds, Soft Genitourinary: Yes: WNL Wound/Incision: Yes: Dressing Dry and Intact (Lt hand dressing intact +hardware) Neurological: Yes: Alert, Oriented Labs: CBC, BMP 06/17/18 06:15 06/17/18 06:15 INR, PTT INR 1.11 (0.83-1.09) H 06/17/18 06:15 Problem List - Problems (1) Crushing injury of left hand, initial encounter Code(s): S67.22XA - CRUSHING INJURY OF LEFT HAND, INITIAL ENCOUNTER (2) Hand laceration Code(s): S61.419A - LACERATION WITHOUT FOREIGN BODY OF UNSP HAND, INIT ENCNTR (3) Mild TBI (traumatic brain injury) Code(s): S06.9X9A - UNSP INTRACRANIAL INJURY W LOC OF UNSP DURATION, INIT Qualifiers: Encounter type: sequela (4) Multiple open fractures of phalanx of finger of left hand Code(s): S62.609B - FRACTURE OF UNSP PHALANX OF UNSP FINGER, INIT FOR OPN FX Assessment/Plan 47 y.o. 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 antibiotics
--- NOTE | 2018-06-17 12:59 | PN ---
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 The patient states that his left was caught between the trash truck and a 1200 lb box they were emptying. He was trapped and took about 30 minutes to get extricated. stable overnight. no complaints. - Current Medication List Current Medications: Active Medications Acetaminophen (Tylenol -) 650 mg PO Q6H PRN PRN Reason: PAIN LEVEL 1-5 Last Admin: 06/16/18 09:34 Dose: 650 mg Diphenhydramine HCl (Benadryl -) 50 mg PO HS PRN PRN Reason: INSOMNIA Last Admin: 06/16/18 22:16 Dose: 50 mg Docusate Sodium (Colace -) 100 mg PO TID JT Last Admin: 06/17/18 06:06 Dose: Not Given Clindamycin Phosphate (Cleocin 600 Mg Premix Ivpb -) 600 mg in 50 mls @ 100 mls /hr IVPB Q8H-IV JT; Protocol Last Admin: 06/17/18 10:29 Dose: 100 mls/hr Piperacillin Sod/Tazobactam (Sod 3.375 gm/ Dextrose) 50 mls @ 100 mls/hr IVPB Q8H-IV JT; Protocol Last Admin: 06/17/18 09:27 Dose: 100 mls/hr Lactobacillus Acidophilus (Bacid -) 1 tab PO DAILY JT Last Admin: 06/17/18 09:25 Dose: 1 tab Lorazepam (Ativan -) 1 mg PO BID PRN PRN Reason: ANXIETY Last Admin: 06/16/18 11:56 Dose: 1 mg Morphine Sulfate (Morphine Sulfate) 4 mg IVPUSH Q4H PRN PRN Reason: PAIN LEVEL 7 - 10 Last Admin: 06/17/18 10:29 Dose: 4 mg Ondansetron HCl (Zofran Injection) 8 mg IVPB Q6H PRN PRN Reason: NAUSEA Oxycodone HCl (Roxicodone -) 5 mg PO Q6H PRN PRN Reason: PAIN LEVEL 1-5 Last Admin: 06/16/18 09:35 Dose: 5 mg Pantoprazole Sodium (Protonix -) 40 mg PO DAILY JT Last Admin: 06/17/18 09:25 Dose: 40 mg - Objective Vital Signs: Vital Signs Temperature 97.6 F 06/17/18 06:00 Pulse Rate 18 L 06/17/18 06:00 Respiratory Rate 18 06/17/18 06:00 Blood Pressure 144/102 06/17/18 06:00 O2 Sat by Pulse Oximetry (%) 98 06/16/18 21:00 Vital Signs Period Temp Pulse Resp BP Sys/Pedro Pulse Ox Last 24 Hr 97.6 F-98.8 F 18-- 120-157/80-102 98 Intake & Output 06/16/18 06/17/18 06/17/18 23:59 07:59 15:59 Intake Total 850 750 Output Total 1000 Balance 850 -250 Intake: IVPB 350 250 Oral 500 500 Output: Urine 1000 Void 1000 Other: Voiding Method Toilet Toilet # Unmeasured Voids Void 2 Constitutional: Yes: Well Nourished, No Distress, Calm Eyes: Yes: Conjunctiva Clear, EOM Intact HENT: Yes: Atraumatic, Normocephalic Neck: Yes: Supple, Trachea Midline Cardiovascular: Yes: Regular Rate and Rhythm, S1, S2 Respiratory: Yes: Regular, CTA Bilaterally Gastrointestinal: Yes: Normal Bowel Sounds, Soft. No: Tenderness ...Rectal Exam: Yes: Deferred Genitourinary: No: CVA Tenderness - Left, CVA Tenderness - Right Musculoskeletal: Yes: Joint Stiffness. No: Muscle Pain, Muscle Weakness Extremities: No: Cool, Cyanosis Edema: LUE: 2+ Peripheral Pulses: Left Radial: 2+, Right Radial: 2+, Left Doralis Pedis: 2+, Right Dorsalis Pedis: 2+ Wound/Incision: Yes: Clean/Dry, Well Approximated, Dressing Dry and Intact Neurological: Yes: Alert, Oriented Psychiatric: Yes: Alert, Oriented Labs: CBC, BMP 06/17/18 06:15 06/17/18 06:15 INR, PTT INR 1.11 (0.83-1.09) H 06/17/18 06:15 Problem List - Problems (1) Crushing injury of left hand, initial encounter Assessment/Plan: 47yo male with left hand crush injury sustained at work POD#4 s/p Irrigation and Debridement of left hand wound, External fixation of small ring and middle ray, primary repair of radial ulnar digital nerve of ring and small fingers and radial digital artery ring finger. Wound looks very clean. Splint changed yesterday. NPO aftermidnight IV antibiotics per ID Incentive spirometer plan to return to OR monday06/18/2018 for Removal of hardware left small, ring and middle proximal phalanx and ORIF Discussed with patient risks, benefits and alternatives to aforementioned procedure, prossible repair of tendons, vessels and nerves including but not limited to bleeding, infection, loss of fucntion, amputation, injury to adjacent structures, need for further procedures, ; alternatives include antibiotics, delayed or no surgery - risks of this include failure of nonoperative therapy, sepsis, loss of function, . Patient desires to proceed with operation - will take to OR for above. Informed consent signed for same. Code(s): S67.22XA - CRUSHING INJURY OF LEFT HAND, INITIAL ENCOUNTER (2) Multiple open fractures of phalanx of finger of left hand Code(s): S62.609B - FRACTURE OF UNSP PHALANX OF UNSP FINGER, INIT FOR OPN FX (3) Open fracture of finger of left hand Code(s): S62.609B - FRACTURE OF UNSP PHALANX OF UNSP FINGER, INIT FOR OPN FX Qualifiers: Encounter type: initial encounter Finger: ring finger (4) Mild TBI (traumatic brain injury) Code(s): S06.9X9A - UNSP INTRACRANIAL INJURY W LOC OF UNSP DURATION, INIT Qualifiers: Encounter type: sequela (5) Open fracture of phalanx of finger Code(s): S62.609B - FRACTURE OF UNSP PHALANX OF UNSP FINGER, INIT FOR OPN FX Qualifiers: Encounter type: initial encounter Finger: ring finger
[2018-06-17] MEDS ORDERED: ACETAMINOPHEN 1000 MG/100 ML VIAL (NON FORMULARY) IVPB ONE ×2 (14:33→20:00)
[2018-06-17] MEDS: LORazepam 1 MG TABLET PO PRN (18:02)
[2018-06-17] MEDS: oxyCODONE HCL 5 MG TABLET PO PRN (20:49)
[2018-06-17] MEDS: diphenhydrAMINE HCL 25 MG CAPSULE (FP) PO PRN (22:23)
[2018-06-18] MEDS ORDERED: PIPERACILLIN/TAZOBACTAM 3.375 GM VIAL IVPB ONE ×3 (01:04→18:01)
[2018-06-18] MEDS ORDERED: DEXTROSE 5%-WATER - 50 ML IVPB ONE ×3 (01:04→18:01)
[2018-06-18] MEDS: CLINDAMYCIN 600MG PREMIX IVPB 600 MG/50 ML BAG IVPB SCH ×2 (01:12→09:47)
[2018-06-18] MEDS: PIPERACILLIN/TAZOB 3.375 GM 3.375 GM in DEXTROSE 5%-WATER - 50 ML IVPB SCH ×2 (01:13→11:01)
[2018-06-18] MEDS: DOCUSATE SODIUM 100 MG CAPSULE (FP) PO SCH (05:33)
[2018-06-18] MEDS: morphine SULFATE 4 MG/ML VIAL IVPUSH PRN ×2 (05:45→09:49)
[2018-06-18] MEDS: LACTOBACILLUS ACIDOPHILUS 1 TABLET PO SCH (09:47)
[2018-06-18] MEDS: PANTOPRAZOLE 40 MG TABLET (FP) PO SCH (10:18)
[2018-06-18] MEDS ORDERED: DEXAMETHASONE SOD PHOSPHATE/PF 10 MG/ML SDV ONE (10:44)
[2018-06-18] MEDS ORDERED: BUPIVACAINE HCL/PF 0.5% (5MG/ML) 10 ML VIAL ONE (10:45)
--- NOTE | 2018-06-18 11:31 | PN ---
Progress Note, Physician History of Present Illness: patient doing well pain still present patient going to or for debridement and hardware - Current Medication List Current Medications: Active Medications Acetaminophen (Tylenol -) 650 mg PO Q6H PRN PRN Reason: PAIN LEVEL 1-5 Last Admin: 06/16/18 09:34 Dose: 650 mg Diphenhydramine HCl (Benadryl -) 50 mg PO HS PRN PRN Reason: INSOMNIA Last Admin: 06/17/18 22:23 Dose: 50 mg Docusate Sodium (Colace -) 100 mg PO TID JT Last Admin: 06/18/18 05:33 Dose: Not Given Clindamycin Phosphate (Cleocin 600 Mg Premix Ivpb -) 600 mg in 50 mls @ 100 mls /hr IVPB Q8H-IV JT; Protocol Last Admin: 06/18/18 09:47 Dose: 100 mls/hr Piperacillin Sod/Tazobactam (Sod 3.375 gm/ Dextrose) 50 mls @ 100 mls/hr IVPB Q8H-IV JT; Protocol Last Admin: 06/18/18 11:01 Dose: 100 mls/hr Lactobacillus Acidophilus (Bacid -) 1 tab PO DAILY JT Last Admin: 06/18/18 09:47 Dose: Not Given Lorazepam (Ativan -) 1 mg PO BID PRN PRN Reason: ANXIETY Last Admin: 06/17/18 18:02 Dose: 1 mg Morphine Sulfate (Morphine Sulfate) 4 mg IVPUSH Q4H PRN PRN Reason: PAIN LEVEL 7 - 10 Last Admin: 06/18/18 09:49 Dose: 4 mg Ondansetron HCl (Zofran Injection) 8 mg IVPB Q6H PRN PRN Reason: NAUSEA Oxycodone HCl (Roxicodone -) 5 mg PO Q6H PRN PRN Reason: PAIN LEVEL 1-5 Last Admin: 06/17/18 20:49 Dose: 5 mg Pantoprazole Sodium (Protonix -) 40 mg PO DAILY JT Last Admin: 06/18/18 10:18 Dose: Not Given - Objective Vital Signs: Vital Signs Temperature 98.4 F 06/18/18 02:00 Pulse Rate 66 06/18/18 02:00 Respiratory Rate 18 06/18/18 02:00 Blood Pressure 158/100 06/18/18 02:00 O2 Sat by Pulse Oximetry (%) 98 06/17/18 21:00 Constitutional: Yes: No Distress, Calm Cardiovascular: Yes: Regular Rate and Rhythm Respiratory: Yes: CTA Bilaterally Gastrointestinal: Yes: Normal Bowel Sounds, Soft Musculoskeletal: Yes: WNL Extremities: Yes: Other Integumentary: Yes: Other Wound/Incision: Yes: Dressing Dry and Intact Neurological: Yes: Alert, Oriented Psychiatric: Yes: Alert, Oriented Labs: CBC, BMP 06/17/18 06:15 06/17/18 06:15 INR, PTT INR 1.11 (0.83-1.09) H 06/17/18 06:15 Assessment/Plan Problem List - Problems (1) Crushing injury of left hand, initial encounter Code(s): S67.22XA - CRUSHING INJURY OF LEFT HAND, INITIAL ENCOUNTER (2) Multiple open fractures of phalanx of finger of left hand Code(s): S62.609B - FRACTURE OF UNSP PHALANX OF UNSP FINGER, INIT FOR OPN FX (3) Open fracture of finger of left hand Code(s): S62.609B - FRACTURE OF UNSP PHALANX OF UNSP FINGER, INIT FOR OPN FX Qualifiers: Encounter type: initial encounter Finger: ring finger (4) Mild TBI (traumatic brain injury) Code(s): S06.9X9A - UNSP INTRACRANIAL INJURY W LOC OF UNSP DURATION, INIT Qualifiers: Encounter type: sequela (5) Open fracture of phalanx of finger Code(s): S62.609B - FRACTURE OF UNSP PHALANX OF UNSP FINGER, INIT FOR OPN FX Qualifiers: Encounter type: initial encounter Finger: ring finger plan continue iv abx patient going to the or to have a look will decide after that further mgmt rest as per the team
[2018-06-18] MEDS ORDERED: MIDAZOLAM HCL 2 MG/2 ML SINGLE DOSE VIAL ONE ×3 (12:07→12:48)
[2018-06-18] MEDS ORDERED: PROPOFOL 20 ML ONE ×9 (12:48→16:20)
[2018-06-18] MEDS ORDERED: LIDOCAINE HCL/PF 2% SDV 5ML VIAL ONE (12:49)
[2018-06-18] MEDS ORDERED: HEPARIN NA (PORCINE) 5,000 UNITS/ML 1ML VIAL ONE (12:59)
[2018-06-18] MEDS ORDERED: ONDANSETRON 4 MG/2 ML VIAL IVPUSH PRN ×2 (13:05→17:26)
[2018-06-18] MEDS ORDERED: LACTATED RINGERS SOLUTION 1,000 ML IV SCH (13:15)
[2018-06-18] MEDS ORDERED: ceFAZolin SODIUM 1 GM VIAL ONE ×2 (13:40→15:52)
[2018-06-18] MEDS ORDERED: ceFAZolin SODIUM 1 GM VIAL IVPB ONE ×2 (13:40→15:52)
[2018-06-18] MEDS ORDERED: ePHEDrine SULFATE 50 MG/1 ML AMPULE ONE (14:07)
[2018-06-18] MEDS ORDERED: PHENYLEPHRINE HCL 10 MG/1 ML SINGLE DOSE VIAL ONE (14:24)
[2018-06-18] MEDS ORDERED: BACITRACIN 15 GM TUBE TOPICAL OINTMENT ONE (16:36)
--- NOTE | 2018-06-18 17:20 | DS ---
Physical Examination Vital Signs: Vital Signs Temperature 97.9 F 06/18/18 09:00 Pulse Rate 68 06/18/18 09:00 Respiratory Rate 18 06/18/18 09:00 Blood Pressure 146/100 06/18/18 09:00 O2 Sat by Pulse Oximetry (%) 98 06/18/18 09:00 Vital Signs Period Temp Pulse Resp BP Sys/Pedro Pulse Ox Last 24 Hr 97.9 F-99 F 58-68 18-18 146-158/87-100 98-98 Findings/Remarks: Stable post-operatively. Afebrile. Pain is adequately controlled. Constitutional: Yes: Well Nourished, No Distress, Calm Eyes: Yes: Conjunctiva Clear, EOM Intact HENT: Yes: Atraumatic, Normocephalic Neck: Yes: Supple, Trachea Midline Cardiovascular: Yes: Regular Rate and Rhythm, S1, S2 Respiratory: Yes: Regular, CTA Bilaterally Gastrointestinal: Yes: Normal Bowel Sounds, Soft. No: Tenderness ...Rectal Exam: Yes: Deferred Renal/: No: CVA Tenderness - Left, CVA Tenderness - Right Musculoskeletal: No: Muscle Pain, Muscle Weakness Extremities: No: Cool, Cyanosis Edema: Yes Edema: LUE: 2+ Peripheral Pulses WNL: Yes Peripheral Pulses: Left Radial: 2+, Right Radial: 2+, Left Doralis Pedis: 2+, Right Dorsalis Pedis: 2+ Integumentary: No: Incision, Jaundice Wound/Incision: Yes: Clean/Dry, Well Approximated, Dressing Dry and Intact Neurological: Yes: Alert, Oriented Psychiatric: Yes: Alert, Oriented Labs: CBC, BMP 06/17/18 06:15 06/17/18 06:15 Discharge Summary Reason For Visit: LACERATION OF HAND, INJURY OF HAND Current Active Problems Crushing injury of left hand, initial encounter (Acute) Hand injury (Acute) Hand laceration (Acute) Mild TBI (traumatic brain injury) (Acute) Multiple open fractures of phalanx of finger of left hand (Acute) Open fracture of finger of left hand (Acute) Open fracture of phalanx of finger (Acute) Procedures: Principal: Left hand removal of hardware, Open reduction and internal fixation of proximal phalanx middle ring and small finger Other Procedures: IV antibiotics Hospital Course: Admitted for emergency procedure. tolerated 2 procedures well. Stable for discharge home Condition: Good - Instructions Diet, Activity, Other Instructions: Postoperative instructions: You had a left hand ORIF of proximal phalanx middle , ring and small fingers on 06/18/[address] Michael Francisco of [facility]. Activity: Resume your usual activities gradually, but no heavy exertion or lifting more than 10-15 pounds for 4-6 weeks. Please keep dressing clean and dry until follow up apppointment. Eat lightly at first, but advance to your usual diet as tolerated. Pain: For pain, you may use and alternate Tylenol (acetaminophen) and/or ibuprofen every 6 hours each as needed; this means that you can take one OR the other at 3-hour intervals. If you are prescribed a Tylenol/narcotic combination for severe pain, use it instead of plain Tylenol as needed and switch back when your pain starts decreasing. Do not take more than 4000mg of acetaminophen in a day. Take medications as prescribed or indicated on the labeling. Follow-up: Call Dr. Jeffries's office at [phone] to make your postop appointment (Monday 1-2 weeks after surgery as advised). Clinic is held in the [facility] on the first [facility] of [facility]. Call the office if you have: * increasing pain not responsive to pain medication * fever of 101F or higher * unusual or increasing bleeding or drainage from wounds * increasing redness or swelling at wound sites Also, see your primary medical doctor within 1-2 weeks. Disposition: HOME - Home Medications Comprehensive Discharge Medication List: Ambulatory Orders NK [No Known Home Medication] 06/13/18
--- NOTE | 2018-06-18 17:24 | OP ---
Operative Note - Note: Operative Date: 06/18/18 Pre-Operative Diagnosis: Crush injury left hand, open proximal phalanx frature middle, ring and small fingers, avulsion of extensor digitorum tendon ring finger zone 3 Operation: Open reduction and internal fixation of proximal phalanx fracture middle, ring and small fingers with plate, screw and bone matrix Findings: Displaced open fractures of proximal phalanx middle, ring and small fingers, avusion 80% laceration of EDC ring finger, large fracture hematomas all afftected digits. TP 250mmHg TT 110mins + 35mins + 5min reperfusion break. Implants: [place] [employer]. 1.7mm 2 hole T plate short + 4 screws - middle finger. 1.7mm 2 hole T plate long + 4 screws AND [place] bioactive glass bone matrix - ring finger. 1.7mm 3 hole T plate long + 5 screws - small finger Post-Operative Diagnosis: Same as Pre-op Surgeon: Michael Francisco Anesthesiologist/QUALITY ENGINEERING MANAGER: Brendan Lin Anesthesia: General, Local (supraclavicular block left arm ) Specimens Removed: explanted external fixation hardware Estimated Blood Loss (mls): 5 Instrument used (Debridements only): scissior and scalpel Fluid Volume Replaced (mls): 1,200 Operative Report Dictated: No
[2018-06-18] MEDS ORDERED: oxyCODONE HCL 5 MG TABLET PO PRN (17:26)
[2018-06-18] MEDS ORDERED: morphine SULFATE 4 MG/ML VIAL IVPUSH PRN (17:26)
[2018-06-18] MEDS ORDERED: ACETAMINOPHEN 325 MG TABLET (FP) PO PRN (17:26)
[2018-06-18] MEDS ORDERED: ONDANSETRON 4 MG/2 ML VIAL IVPB PRN (17:26)
[2018-06-18] MEDS ORDERED: LORazepam 1 MG TABLET PO PRN (17:26)
[2018-06-18] MEDS ORDERED: CLINDAMYCIN 600MG PREMIX IVPB 600 MG/50 ML BAG IVPB SCH (18:00)
[2018-06-18] MEDS ORDERED: PIPERACILLIN/TAZOB 3.375 GM 3.375 GM in DEXTROSE 5%-WATER - 50 ML IVPB SCH (18:00)
[2018-06-18 18:34] VITALS: BP 123/74; PULSE 79; TEMP 97.3
[2018-06-18] MEDS ORDERED: diphenhydrAMINE HCL 25 MG CAPSULE (FP) PO PRN (22:00)
[2018-06-18] MEDS ORDERED: DOCUSATE SODIUM 100 MG CAPSULE (FP) PO SCH (22:00)
--- NOTE | 2018-06-19 08:39 | OP ---
DATE OF OPERATION: 06/18/2018 PREOPERATIVE DIAGNOSES: Crush injury, left hand; open phalanx fractures, middle, ring, and small fingers; avulsion of extensor digitorum communis tendon zone to ring finger. POSTOPERATIVE DIAGNOSES: Crush injury, left hand; open phalanx fractures, middle, ring, and small fingers; avulsion of extensor digitorum communis tendon, zone III of ring finger. PROCEDURE: Open reduction and internal fixation of the proximal phalanx fractures, middle, ring, and small fingers with plate and screws and bone matrix and repair of extensor digitorum communis tendon, zone III, ring finger. ATTENDING SURGEON: Michael Francisco MD DEVELOPMENT DIRECTOR: No one. ANESTHESIOLOGIST: Brendan Lin MD ANESTHESIA TYPE: General with a left arm supraclavicular block. ESTIMATED BLOOD LOSS: 5 mL INTRAVENOUS FLUID ADMINISTERED: 1200 mL SPECIMEN SENT: External fixation hardware which was explanted. USED TO DEBRIDE THE WOUND: Scissors and scalpel. IMPLANTS: [place] hand Vari[employer] 1.7-mm 2-hole plate, T-plate, short with 4 screws for the middle finger; 1.7-mm 2-hole plate, long, with 4 screws and [place] bioactive glass matrix for the ring finger; and 1.7-mm 3-hole T-plate, long, 5 screws for small finger. INDICATION: Patient is a 47-year-old male sustaining a crush injury and mangled hand on the left side which was externally fixed as well as re-vascularized, had nerve repair and tendon repair 5 days prior. He was placed into an external fixator. He was counseled regarding risks, benefits, and alternatives and need for revision surgery after a significant amount of intravenous antibiotics and re-inspection and debridement of the wound. He signed informed consent, was taken for the procedure. DESCRIPTION OF PROCEDURE: Patient was brought to the operating room, placed in supine position on the operating table with the left arm extended at 90 degrees perpendicular to the body's midline axis. His left arm was prepped and draped into a standard surgical field. He had lower extremity SCDs placed to compression. He was induced with general anesthesia, provided with supplemental oxygen. He had a supraclavicular block in place. When the patient was stable, a formal timeout was conducted, identifying the operative site and digits. All plates were present in the room. With all parties in agreement, we began first with removal of the external fixator for the small finger's ray, spanning the metacarpal head to the middle phalanx of the ray. This was explanted and passed off the field for pathologic diagnosis. We then proceeded with a midline dorsal incision overlying the proximal phalanx, exposing the proximal phalanx. The extensor tendon was identified. Fracture hematoma was debrided from the site as well as control with superficial veins from the site. A midline approach through the extensor tendon with plan to repair after completing the repair was performed. The periosteum was then elevated from the bone, identifying a base fracture of the proximal phalanx for the small finger. This fracture was reduced, after debriding the fracture itself, into anatomic position. There was also a transverse fracture fragment which was displaced, which was replaced in anatomic position. A plate was selected for reduction and fixation in the plate. After completing this, the plate was transfixed to the bone, cross-drilling the plate with a 1.4-mm screw to accommodate a 1.7-mm screw. This was done, and the fracture was fixed under guidance to assure adequate reduction of the fracture itself. After completing the fracture fixation, it was recorded using fluoroscopy to assure adequate length of the plate fixation. We then proceeded with closure of the extensor tendon, and the extensor tendon was closed with 4-0 Ethibond in interrupted fashion, inverting the knot to avoid knot irritation. After completing this finger, the site was irrigated and closed at the skin with 4-0 nylon in a running fashion. This was done after debriding the skin incision to fresh-cut edges. The skin was then cleaned. We turned our attention to the following digit. The second digit, the ring finger: We explanted the hardware which was placed preoperatively. It was noted after opening the skin that the extensor digitorum communis tendon was ruptured and would require repair. We proceeded with first a midline incision through the extensor tendon to identify the fracture. The fracture hematoma was debrided in similar fashion. It was clear at this point that we would have to use a bridge technique to reconstruct the proximal phalanx for the ring finger as it was badly displaced and there were missing fragments. After restoring the phalanx to near-anatomic alignment and the ray was restored, we selected a long 2-holed basal plate to bridge the fracture fragments. The plan here was to install a bioactive glass matrix from [employer] in the medullary cavity to encourage healing across the bridged scan of proximal phalanx. The plate was affixed first proximally, cross-drilled the plate, and 1.7-mm screws were used to fix the base. With this done, it was reduced into anatomic extension in neutral position and then distally transfixed with cross-drilling the plate again. The mid-span, the bioactive glass was reactivated according to protocols and installed into the medullary cavity for the proximal phalanx. We then turned our attention to checking alignment of the bridge technique fixation. With this in adequate position and completely transfixed, we took the time to oppose the fingers in anatomic position to see if there was an adequate alignment. When satisfied, we then turned our attention to irrigating the site. The extensor tendon was repaired in similar fashion with 4-0 Ethibond stitch in the midline, repairing using a modified Cordova's stitch across the near avulsion of 70% of the extensor tendon at the site in zone III. This was done, and additional [id number] were taken with the Ethibond stitch to reinforce the repair. The midline opening was then ablated as well. After this was complete, the site was irrigated. Skin was closed with 4-0 nylon in running fashion. We then turned our attention to the mid finger. The external fixation hardware was explanted and passed off for pathologic diagnosis with the remainder of the hardware. We then turned our attention to an open in the midline, dorsal incision similar to the other fingers that were fixed. The extensor tendon was identified, and there was a single, minimally displaced fracture mid shaft near the just subcondylar region in the metaphysis of the proximal phalanx. We proceeded then with opening the extensor tendon in the midline, elevating the periosteum, and transfixing plate. In this case, a short plate, a 2-holed T, was selected, 1.7 mm again. The plate was cross-drilled and then fixed to the bone across the fracture site, adding additional compression and placing our screws eccentrically. We then proceeded with irrigation of the site. This was checked on the for adequacy of fixation. The extensor tendon was repaired again in the midline using the same 4-0 Ethibond in interrupted fashion, burying the knots to avoid knot irritation. The skin was then additionally cleaned and closed with 4-0 nylon in running fashion. The patient then had the skin cleaned and sterile dressings placed. Web space protection was provided with a fluffed gauze sponge. The wounds were all dressed again after cleaning with bacitracin ointment, a Xeroform gauze, followed by absorbent 4 x 4 gauze and then cast padding prior to placement of a resting splint, dorsal and volar. The patient was also provided with a sling for elevation. He was awoken from general anesthesia in stable condition, having tolerated the procedure well. All hardware was accounted for, and counts were correct postoperatively. He was returned to recovery in stable condition with a plan for discharge the same day. MD JOSEPHINE Luna/[id number]
[2018-06-19] MEDS ORDERED: LACTOBACILLUS ACIDOPHILUS 1 TABLET PO SCH (10:00)
[2018-06-19] MEDS ORDERED: PANTOPRAZOLE 40 MG TABLET (FP) PO SCH (10:00)
--- NOTE | 2018-06-19 16:52 | PATH ---
Surgical Pathology Report Patient Name: KYLER LEON Med. Rec. #: [id number] /Age/Gender: 1970 (Age: 47) / M Account: [id number] Location: [facility] MED/SURG Taken: 06/18/2018 Received: 06/19/2018 Reported: 06/19/2018 Physicians: Michael Francisco M.D. Specimen(s) Received HARDWARE LEFT HAND Clinical History Crushed injury left hand status post external fixation Final Diagnosis HARDWARE, HAND, LEFT, REMOVAL: SURGICAL HARDWARE. MACROSCOPIC DIAGNOSIS. Electronically Signed Sheri Barclay M.D. Gross Description Received fresh labeled "hardware left hand," are 10 plunkett metallic screws ranging from 3.5-4.5 cm in length. Also received within the same container are 8 additional plunkett metallic portions of hardware ranging from 1.5-9.0 cm in greatest dimension. No soft tissue is present. No sections are submitted, gross only. /06/19/201806/19/2018
== END 2018-06-18 20:50 | disposition home or self-care (01) | DRG 316 ==
LOC: JER 07:33 → JERBED 10:07 → J8W 11:44
PROC: 0HBGXZZ Excision of Left Hand Skin, External Approach (ICD-10-PCS; principal; 2018-06-14)
PROC: 0PS Upper Bones, Reposition (ICD-10-PCS; 2018-06-14)
PROC: 3E10X8Z Irrigation of Skin and Mucous Membranes using Irrigating Substance (ICD-10-PCS; 2018-06-14)
PROC: 01N50ZZ Release Median Nerve, Open Approach (ICD-10-PCS; 2018-06-14)
PROC: 01Q60ZZ Repair Radial Nerve, Open Approach (ICD-10-PCS; 2018-06-14)
PROC: 0LS80ZZ Reposition Left Hand Tendon, Open Approach (ICD-10-PCS; 2018-06-14)
PROC: 03CC0ZZ Extirpation of Matter from Left Radial Artery, Open Approach (ICD-10-PCS; 2018-06-14)
PROC: 03QF0ZZ Repair Left Hand Artery, Open Approach (ICD-10-PCS; 2018-06-14)
PROC: 3E030GC Introduction of Other Therapeutic Substance into Peripheral Vein, Open Approach (ICD-10-PCS; 2018-06-14)
PROC: 0PSV04Z Reposition Left Finger Phalanx with Internal Fixation Device, Open Approach (ICD-10-PCS; 2018-06-18)
PROC: 0PSV04Z Reposition Left Finger Phalanx with Internal Fixation Device, Open Approach (ICD-10-PCS; 2018-06-18)
PROC: 0PSV04Z Reposition Left Finger Phalanx with Internal Fixation Device, Open Approach (ICD-10-PCS; 2018-06-18)
PROC: 0LQ80ZZ Repair Left Hand Tendon, Open Approach (ICD-10-PCS; 2018-06-18)
PROC: 0XP Anatomical Regions, Upper Extremities, Removal (ICD-10-PCS; 2018-06-18)
PROC: 0JBK0ZZ Excision of Left Hand Subcutaneous Tissue and Fascia, Open Approach (ICD-10-PCS; 2018-06-18)
DX: S67.22XA Crushing injury of left hand, initial encounter (principal); S67.193A Crushing injury of left middle finger, initial encounter; S67.195A Crushing injury of left ring finger, initial encounter; S66.395A Other injury of extensor muscle, fascia and tendon of left ring finger at wrist and hand level, initial encounter; S62.609B Fracture of unspecified phalanx of unspecified finger, initial encounter for open fracture; S61.223A Laceration with foreign body of left middle finger without damage to nail, initial encounter; S06.9X9A Unspecified intracranial injury with loss of consciousness of unspecified duration, initial encounter; N17.9 Acute kidney failure, unspecified; R19.7 Diarrhea, unspecified; X58.XXXA Exposure to other specified factors, initial encounter; Y92.414 Local residential or business street as the place of occurrence of the external cause; S62.615B Displaced fracture of proximal phalanx of left ring finger, initial encounter for open fracture
CPT/HCPCS: 36415; 71045-TC-FY; 73130-TC-LR-FY; 76000-TC-FY; 80053; 85025; 85610; 85730; 86850; 86900; 86901; 88300-TC; 93005; 93010; 94010; 94760; 97116-GP; 97161-GP; 99282-25; J0131; J1644; J7030

== ENCOUNTER 2018-11-07 09:38 | Day surgery (SDC) | payer OTHER ==
[2018-11-05 16:49] VITALS: BMI 30.4
--- NOTE | 2018-11-07 03:06 | HP ---
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 The patient states that his left was caught between the trash truck and a 1200 lb box they were emptying. He was trapped and took about 30 minutes to get extricated. He had a two stage reconstruction of multiple fingers. He has been actively engaged in physical therapy but has plateaued with regards to motion progress which is likely due to scar formation and tendon adhesion. We plan to return for removal of hardware. 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) - Advance Directives Advance Directives: Yes: Health Care Proxy - Smoking History Smoking history: Never smoked Have you smoked in the past 12 months: No - Alcohol/Substance Use Hx Alcohol Use: Yes (1-2/weekends) History of Substance Use: reports: None - Social History ADL: Independent History of Recent Travel: No Home Medications - Allergies Allergies/Adverse Reactions: Allergies Allergy/AdvReac Type Severity Reaction Status Date / Time No Known Drug Allergies Allergy Verified 11/07/18 10:20 - Home Medications Home Medications: Ambulatory Orders Cyclobenzaprine HCl 10 mg PO DAILY 11/05/18 Oxycodone HCl/Acetaminophen [Oxycodone-Acetaminophen 5-325] 1 each PO PRN PRN Oxycodone HCl/Acetaminophen [Percocet 10-325 mg Tablet] 1 each PO Q6H 7 Days # 80 tablet MDD 5 11/07/18 Review of Systems - Review of Systems Constitutional: denies: Chills, Fever, Night Sweats Eyes: denies: Recent Change in Vision HENT: denies: Difficult Swallowing, Throat Pain Neck: denies: Pain on Movement, Tenderness Cardiovascular: denies: Chest Pain, Palpitations Respiratory: denies: Cough, SOB Gastrointestinal: denies: Abdominal Pain, Constipation, Diarrhea Genitourinary: denies: Discharge, Dysuria Breasts: reports: No Symptoms Reported. denies: Pain Musculoskeletal: denies: Back Pain, Decreased ROM Integumentary: denies: Bruising, Lesions, Pruritis Neurological: denies: Syncope, Tremors Endocrine: denies: Unexplained Weight Gain, Unexplained Weight Loss Hematology/Lymphatic: denies: Easily Bruised, Excessive Bleeding Psychiatric: denies: Depression, Hallucinations Physical Examination Constitutional: Yes: Well Nourished, No Distress, Calm Eyes: Yes: Conjunctiva Clear, EOM Intact HENT: Yes: Atraumatic, Normocephalic Neck: Yes: Supple, Trachea Midline Cardiovascular: Yes: Regular Rate and Rhythm, S1, S2 Respiratory: Yes: Regular, CTA Bilaterally Gastrointestinal: Yes: Normal Bowel Sounds, Soft, Tenderness, Rebound. No: Tenderness Renal/: No: CVA Tenderness - Left, CVA Tenderness - Right Extremities: No: Cool, Cyanosis Edema: No Peripheral Pulses WNL: Yes Peripheral Pulses: Left Radial: 2+, Right Radial: 2+, Left Doralis Pedis: 2+, Right Dorsalis Pedis: 2+, Left Femoral: 2+, Right Femoral: 2+ Integumentary: No: Jaundice Wound/Incision: Yes: Clean/Dry, Well Approximated Neurological: Yes: Alert, Oriented, Other (stiff left small ring and middle finger) Psychiatric: Yes: Alert, Oriented Problem List - Problems (1) Stiffness of finger joint of left hand Assessment/Plan: 47 yo male with left hand stiffness after reconstructive procedure in june. NPO and IVF hydration OR for hardware removal, capsulotomy and tenolysis Discussed with patient risks, benefits and alternatives of aforementioned procedure, including but not limited to bleeding, infection, injury to adjacent structures, leak or injury, loss of function need for further procedures, ; alternatives include antibiotics, delayed or no surgery - risks of this include failure of nonoperative therapy, sepsis, recurrence, . Patient desires to proceed with operation - will take to OR for above. Informed consent signed for same. Thank you for the opportunity to participate in the care of this patient. Code(s): M25.642 - STIFFNESS OF LEFT HAND, NOT ELSEWHERE CLASSIFIED (2) Concussion Code(s): S06.0X9A - CONCUSSION W LOSS OF CONSCIOUSNESS OF UNSP DURATION, INIT (3) Crushing injury of left hand, initial encounter Code(s): S67.22XA - CRUSHING INJURY OF LEFT HAND, INITIAL ENCOUNTER (4) Hand laceration Code(s): S61.419A - LACERATION WITHOUT FOREIGN BODY OF UNSP HAND, INIT ENCNTR (5) Mild TBI (traumatic brain injury) Code(s): S06.9X9A - UNSP INTRACRANIAL INJURY W LOC OF UNSP DURATION, INIT Qualifiers: Encounter type: sequela (6) Multiple open fractures of phalanx of finger of left hand Code(s): S62.609B - FRACTURE OF UNSP PHALANX OF UNSP FINGER, INIT FOR OPN FX
[2018-11-07] MEDS ORDERED: MIDAZOLAM HCL 2 MG/2 ML SINGLE DOSE VIAL ONE ×2 (09:58→12:55)
[2018-11-07 10:05] LABS: BASO % 0.6 % (0-2.0); EOS % 0.6 % (0-4.5); HEMOGLOBIN 14.1 GM/dL (11.7-16.9); LYMPH % 18.4 % (8-40); MCH 31.9 pg (25.7-33.7); MCHC 35.2 g/dl (32.0-35.9); MEAN CELL VOLUME 90.6 fl (80-96); MEAN PLT VOLUME 10.6 fl (7.5-11.1); MONO % 7.2 % (3.8-10.2); NEUT % 73.2 % (42.8-82.8); PLATELET COUNT 265 K/MM3 (134-434); RBC 4.42 M/mm3 (4.00-5.60); RDW 15.7 % (11.9-15.9); WHITE BLOOD COUNT 8.4 K/mm3 (4.0-10.0)
[2018-11-07 11:03] LABS: ALBUMIN 4.1 g/dl (3.4-5.0); ALK PHOS 68 U/L (45-117); ANION GAP 5 MMOL/L (8-16); BILIRUBIN,TOTAL 0.6 mg/dL (0.2-1); BLOOD UREA NITROGEN 18 mg/dL (7-18); CALCIUM 9.5 mg/dL (8.5-10.1); CHLORIDE 108 mmol/L (98-107); CO2 26 mmol/L (21-32); CREATININE 1.7 mg/dL (0.55-1.3); GLUCOSE,RANDOM 86 mg/dL (74-106); POTASSIUM 4.5 mmol/L (3.5-5.1); SGOT/AST 27 U/L (15-37); SGPT/ALT 93 U/L (13-61); SODIUM 140 mmol/L (136-145); TOT PROT 7.9 g/dl (6.4-8.2)
[2018-11-07] MEDS ORDERED: ceFAZolin 2 GRAM PREMIX BAG IVPB SCH (11:30)
--- NOTE | 2018-11-07 11:32 | DS ---
Physical Examination Vital Signs: Vital Signs Temperature 97.4 F L 11/07/18 10:18 Pulse Rate 87 11/07/18 10:18 Respiratory Rate 18 11/07/18 10:18 Blood Pressure 146/94 11/07/18 10:18 O2 Sat by Pulse Oximetry (%) 98 11/07/18 10:20 Findings/Remarks: patient is stable postoperatively. he is tolerating diet Constitutional: Yes: Well Nourished, No Distress, Calm Eyes: Yes: Conjunctiva Clear, EOM Intact HENT: Yes: Atraumatic, Normocephalic Neck: Yes: Supple, Trachea Midline Cardiovascular: Yes: Regular Rate and Rhythm, S1, S2 Respiratory: Yes: Regular, CTA Bilaterally Gastrointestinal: Yes: Normal Bowel Sounds, Soft, Abdomen, Obese ...Rectal Exam: Yes: Deferred Renal/: No: CVA Tenderness - Left, CVA Tenderness - Right Breast(s): No: Breast Implants, Nipple Inversion Musculoskeletal: No: Back Pain, Muscle Pain, Muscle Weakness Extremities: No: Cool, Cyanosis Edema: No Peripheral Pulses WNL: Yes Peripheral Pulses: Left Radial: 2+, Right Radial: 2+, Left Doralis Pedis: 2+, Right Dorsalis Pedis: 2+, Left Femoral: 2+, Right Femoral: 2+ Integumentary: No: Jaundice, Rash, Skin Tear Wound/Incision: Yes: Clean/Dry, Well Approximated, Dressing Dry and Intact Neurological: Yes: Alert, Oriented Psychiatric: Yes: Alert, Oriented Labs: CBC, BMP 11/07/18 09:52 11/07/18 09:52 Discharge Summary Reason For Visit: SCAR CONDITIONS AND FIBROSIS OF SKIN Current Active Problems Stiffness of finger joint of left hand (Acute) Procedures: Principal: Removal of hardware left middle and small fingers. Capsulotomy left middle ring and small fingers. Tenolysis left middle, ring and small fingers Hospital Course: Admitted for ambulatory surgery. uneventful procedure. Stable for discharge home. Condition: Improved - Instructions Diet, Activity, Other Instructions: Postoperative instructions: You had a hardware removal left middle and small finger, capsulotomy and tenolysis middle, ring and small fingers on 11/07/[address] Michael Francisco of [facility]. Activity: Resume your usual activities gradually, but no heavy exertion or lifting more than 10-15 pounds for 4-6 weeks. Dressings may be removed for the purpose of physical therapy. Eat lightly at first, but advance to your usual diet as tolerated. Pain: For pain, you may use and alternate Tylenol (acetaminophen) 1-2 pills and/ or ibuprofen 200 mg (1-3 pills) every 6 hours each as needed; this means that you can take one OR the other at 3-hour intervals. If you are prescribed a Tylenol/narcotic combination for severe pain, use it instead of plain Tylenol as needed and switch back when your pain starts decreasing. Do not take more than 4000 mg of acetaminophen in a day. Take medications as prescribed or indicated on the labeling. Follow-up: Call Dr. Francisco' office at [phone] to make your postop appointment (Monday in approximately 2 weeks after surgery as advised). Clinic is held in the Diagnostic Center on the first floor of [facility]. Call the office if you have: * increasing pain not responsive to pain medication * fever of 101F or higher * unusual or increasing bleeding or drainage from wounds * increasing redness or swelling at wound sites Also, see your primary medical doctor within 1-2 weeks. Disposition: HOME - Home Medications Comprehensive Discharge Medication List: Ambulatory Orders Cyclobenzaprine HCl 10 mg PO DAILY 11/05/18 Oxycodone HCl/Acetaminophen [Oxycodone-Acetaminophen 5-325] 1 each PO PRN PRN
--- NOTE | 2018-11-07 11:32 | OP ---
Operative Note - Note: Operative Date: 11/07/18 Pre-Operative Diagnosis: stiff left hand (middle ring and small) Operation: Removal of hardware left middle and small fingers. Capsulotomy left middle ring and small fingers. Tenolysis left middle, ring and small fingers Findings: dense scar adhesions to overlying skin and underlying bone in all fingers. well healed fractures of proximal phalanx in middle and small fingers. unstable osseous union of proximal pahalanx for the ring finger. TP 250mmHg, TT 74mins Post-Operative Diagnosis: Same as Pre-op Surgeon: Michael Francisco Anesthesiologist/SOUNDSCRIBER MECHANIC: Courtney Thomas Anesthesia: General, Local Specimens Removed: explanted hardware from left middle and small finger Estimated Blood Loss (mls): 2 Fluid Volume Replaced (mls): 800 Operative Report Dictated: Yes
[2018-11-07] MEDS ORDERED: LIDOCAINE HCL/PF 2% SDV 5ML VIAL ONE (12:55)
[2018-11-07] MEDS ORDERED: PROPOFOL 20 ML ONE ×3 (12:55→13:15)
[2018-11-07] MEDS ORDERED: ceFAZolin SODIUM 1 GM VIAL ONE (13:26)
[2018-11-07] MEDS ORDERED: ceFAZolin SODIUM 1 GM VIAL IVPB ONE (13:29)
[2018-11-07] MEDS ORDERED: DEXAMETHASONE SOD PHOSPHATE 4 MG/1 ML VIAL ONE (13:43)
[2018-11-07] MEDS ORDERED: ONDANSETRON 4 MG/2 ML VIAL ONE (13:43)
[2018-11-07] MEDS ORDERED: BUPIVACAINE HCL/PF 0.5% (5MG/ML) 10 ML VIAL IJ ONE (14:10)
[2018-11-07] MEDS ORDERED: BUPIVACAINE HCL/PF 0.5% (5MG/ML) 10 ML VIAL ONE (14:41)
[2018-11-07] MEDS ORDERED: oxyCODONE HCL 5 MG TABLET PO PRN (15:06)
[2018-11-07] MEDS ORDERED: ONDANSETRON 4 MG/2 ML VIAL IVPUSH PRN (15:06)
[2018-11-07] MEDS ORDERED: ACETAMINOPHEN 1000 MG/100 ML VIAL (NON FORMULARY) IVPB PRN (15:07)
[2018-11-07] MEDS ORDERED: LACTATED RINGERS SOLUTION 1,000 ML IV SCH (15:15)
[2018-11-07] MEDS ORDERED: ACETAMINOPHEN INJECTION 100 ML IVPB ONE (15:20)
[2018-11-07] MEDS ORDERED: ACETAMINOPHEN 1000 MG/100 ML VIAL (NON FORMULARY) IVPB ONE (15:30)
[2018-11-07 17:07] VITALS: BP 140/85; PULSE 94; TEMP 98.3
--- NOTE | 2018-11-09 19:44 | PATH ---
Surgical Pathology Report Patient Name: KYLER LEON Med. Rec. #: [id number] /Age/Gender: 1970 (Age: 47) / M Account: [id number] Location: [facility] SURGICAL Taken: 11/07/2018 Received: 11/08/2018 Reported: 11/09/2018 Physicians: Michael Francisco M.D. Specimen(s) Received HARDWARE FROM MIDDLE AND SMALL FINGER Clinical History Scar condition and fibrosis of skin Final Diagnosis HARDWARE, MIDDLE AND SMALL FINGER, REMOVAL: SURGICAL HARDWARE. MACROSCOPIC DIAGNOSIS. Electronically Signed Sheri Barclay M.D. Gross Description Received fresh labeled "hardware from middle and small finger," are 2 plunkett metallic plates averaging 2.0 cm in greatest dimension. Also received within the same container are 4 plunkett metallic screws ranging from 0.7-1.3 cm in length. No soft tissue is present. No sections are submitted, gross only. 11/08/2018 [place]11/08/2018
--- NOTE | 2018-11-12 19:53 | OP ---
DATE OF OPERATION: 11/07/2018 PREOPERATIVE DIAGNOSIS: Left hand stiffness in the ring middle and small fingers. POSTOPERATIVE DIAGNOSIS: Left hand stiffness in the ring middle and small fingers. PROCEDURE: Removal of hardware left middle and small fingers, capsulotomy left middle ring and small finger tenolysis left middle ring and small fingers. ATTENDING SURGEON: Michael Francisco M.D. FACILITY ENVIRONMENTAL TECHNICIAN: None. ANESTHESIOLOGIST: Courtney Thomas MD ANESTHESIA: General with local. Local consisted of 0.5% Marcaine a total of 20 mL administered in the area block fashion to the digits on the left hand. ESTIMATED BLOOD LOSS: 2 mL TOURNIQUET PRESSURE: 250 mmHg TOURNIQUET TIME: 74 minutes INTRAVENOUS FLUID REPLACEMENT: 800 mL crystalloid, it was LR EXPLANTED HARDWARE: From the left middle and small fingers, parts of the Sherin set. INDICATION: Patient is a 47-year-old male presenting after having a crush injury with a 1200 pound canister to the left hand. He had fractures in the middle, ring, and small finger proximal phalanx requiring a staged reconstruction with hardware. He had limited range of motion on active motion. He was counseled regarding risks, benefits, and alternatives to hardware removal and explantation of hardware as well as tenolysis and capsulotomies to see if we could improve motion. He signed informed consent, was taken for the procedure. DESCRIPTION OF PROCEDURE: Patient was brought to the operating room, was placed supine position on the operating room table. Left arm extended 90 degrees perpendicular to body's midline axis. Lower extremities had SCDs placed to compression. Patient received intravenous antibiotics prior to start of surgery. After induction and endotracheal intubation, the arm was exsanguinated and tourniquet was inflated to a pressure of 250 mmHg. Formal timeout was completed, identifying the operative digits, at which point we began 4th first with a dorsal approach to the middle finger through the initial scar which was well healed. Incision was made with 15 blade scalpel deepened and widened through subcutaneous tissue. Care was taken to lyse the adhesions from the skin to the capsule of the hardware under the extensor compartment. The extensor tendon was opened in the midline, and the Ethibond which was used to repair it was debrided. After completing the opening of the extensor tendon, the hardware was identified on the phalanx which appeared healed at this point. The hardware was explanted with the same 1.7 and 1.2 mm drivers. They were explanted in their entirety, and the plate was elevated from the plane with a periosteal elevator. Once complete, the remainder of the scar was debrided. We took time to do a capsulotomy at the PIP joint with dorsal stepcut incision across, allowing for flexion of the digit. We then turned our attention to the extensor tendon and did a lysis of extensors from proximal and distally in the finger. After completing them, the extensor tendon was repaired using 4-0 Vicryl in interrupted fashion, and the skin was then repaired with a running whipstitch of nylon 4-0. After completing these repairs, we then turned our attention to the small finger. In similar fashion the midline incision was opened with 15 blade scalpel to expose the extensor tendon and the Ethibond stitch was used to repair the tendon initially was debrided. The tendon was opened with 15 blade scalpel and then the scar over the hardware fixation was elevated with a periosteal elevator, and the hardware was then explanted with a 1.2 mm drill. Once complete, we proceeded then with elevation of the plate for the bone. The fracture appeared very stable, at which point we decided to debride the remaining scar, proceed with a capsulotomy and extensive tenolysis in this finger as well over the PIP joint, although a passive DIP joint, and proximally onto the dorsum of the hand. After completing these repairs, we then turned our attention finally to the repair of the extensor tendon that was repaired in the midline using 4-0 Vicryl. The skin was then irrigated and closed with running 4-0 nylon. Finally we turned our attention to the ring finger, which is the most damaged finger, at which point we proceeded first with dorsal skin incision over the extensor tendon. In similar fashion, extensor tenolysis was completed proximally and distally once opening the midline extensor tendon past the PIP. A capsulotomy was performed, at which point we turned our attention to the hardware fixation in the proximal phalanx for the ring finger. It appeared to be relatively unstable with passive motion there appeared to be some instability across with the hardware loosened. The hardware was resecured and retightened, at which point we made a decision to leave the hardware over the proximal phalanx fixation. This was checked under and appeared to be in adequate position. The dorsal capsulotomy was proceeded with over the proximal interphalangeal for the ringer finger as well, and once we completed the extensor tenolysis, we then repaired the extensor tendon in the midline using 4-0 Vicryl in interrupted fashion. The skin was then irrigated and cleaned and repaired using a running 4-0 nylon in this finger as well. The skin was cleaned, sterile dressings were placed including Xeroform, bacitracin, 4x4 gauze, and Fany wrap. The patient was awoken from general anesthesia having tolerated procedure well after tourniquet was restored, there was adequate perfusion to fingertips. Patient was given instructions to follow in a period of 1 day in physical therapy and 2 weeks for us in clinic. MD JOSEPHINE Luna/[id number]
== END 2018-11-07 17:10 | disposition home or self-care (01) ==
LOC: JASU-SURG 09:38
PROC: 0RPX0JZ Removal of Synthetic Substitute from Left Finger Phalangeal Joint, Open Approach (ICD-10-PCS; 2018-11-07)
PROC: 0LN80ZZ Release Left Hand Tendon, Open Approach (ICD-10-PCS; 2018-11-07)
PROC: 0LN80ZZ Release Left Hand Tendon, Open Approach (ICD-10-PCS; 2018-11-07)
PROC: 0RNX0ZZ Release Left Finger Phalangeal Joint, Open Approach (ICD-10-PCS; 2018-11-07)
PROC: 0RNX0ZZ Release Left Finger Phalangeal Joint, Open Approach (ICD-10-PCS; 2018-11-07)
PROC: 0RPX0JZ Removal of Synthetic Substitute from Left Finger Phalangeal Joint, Open Approach (ICD-10-PCS; principal; 2018-11-07 11:30)
DX: M25.642 Stiffness of left hand, not elsewhere classified (principal); Z47.2 Encounter for removal of internal fixation device
CPT/HCPCS: 36415; 76000-TC-FY; 80053; 85025; 86850; 86900; 86901; 88300-TC; 94760; J0131

== ENCOUNTER 2020-06-20 16:52 | Emergency (ER) | payer BC, OTHER ==
[2020-06-20 17:17] VITALS: TEMP 98.6; BMI 31.4
--- NOTE | 2020-06-20 17:28 | PDOC ---
History of Present Illness - General Chief Complaint: Chest Pain Stated Complaint: chest pain Time Seen by Provider: 06/20/20 17:08 History Source: Patient Exam Limitations: No Limitations - History of Present Illness Initial Comments: 06/20/20 17:28 HPI: This is a 49 y/o male with a PMH of HTN presenting to the ED because of left- sided, non-radiating chest squeezing that began at 7:30 this morning when he was laying in bed. The pain has been constant with intermittent exacerbations. He has never experienced it before. It is not worse with exertion, and nothing improves it. The pain is worse with inspiration and twisting and is 6/10. He denies any accompanying SOB, N/V, abdominal pain, diaphoresis, or family hx of heart disease. He denies any recent travel, long car rides, immobilization, smoking, sick contacts, or recent illness. ROS: GENERAL/CONSTITUTIONAL: No fever/chills. No weakness. CARDIOVASCULAR: Yes chest pain. No shortness of breath. RESPIRATORY: No cough, wheezing, or hemoptysis. GASTROINTESTINAL: No nausea, vomiting, diarrhea or constipation. GENITOURINARY: No dysuria, frequency, or change in urination. MUSCULOSKELETAL: No joint or muscle swelling or pain. No neck or back pain. SKIN: No rash NEUROLOGIC: No headache, vertigo, loss of consciousness, or change in strength /sensation.. HEMATOLOGIC/LYMPHATIC: No anemia, easy bleeding, or history of blood clots. PMH: HTN PSx: 2 hand surgeries, 2 tricep, and 2 knee. Social Hx: Denied tobacco. Occasional etoh. Meds: Amlodipine Allergies: Denied PE: GENERAL: Awake, alert, and fully oriented, in mild distress due to pain. Sitting up and leaning forward in bed. Conversing normally. HEAD: No signs of trauma EYES: PERRLA, EOMI NECK: Normal ROM, supple, no lymphadenopathy, JVD, or masses LUNGS: Breath sounds equal, clear to auscultation bilaterally. No wheezes, and no crackles HEART: Regular rate and rhythm, normal S1 and S2, no murmurs, rubs or gallops. Pain not reproducible with palpation. ABDOMEN: Soft, nontender, normoactive bowel sounds. No guarding, no rebound. No masses EXTREMITIES: Normal range of motion, no edema. NEUROLOGICAL: Cranial nerves II through XII grossly intact. Normal speech, normal gait MDM: 06/20/20 17:40 - Concern for ACS vs PE vs pericarditis vs PNA - doubt PNA as no SOB, cough, sick contacts - No PE risk factors -EKG -CMP -CBC -Troponin - CXR 06/20/20 18:19 - EKG with t-wave inversions in I and AVL not present on EKG in 2018 - trop negative, but still with chest pain. Concern for ACS, Would like to admit for tele obs - Creatinine 1.6 which seems to be his baseline. - Microblogged symphony. - Will give ASA and NG - Minimal improvement with NG 06/20/20 18:41 - Spoke with Dr. Batres who requested Cardio consult 06/20/20 18:53 - Spoke with Dr. Quezada (ruby on rails web developer for [facility]). He suggested another troponin at 3 hrs, and if that is negative with no dynamic EKG changes then the patient is ok to be d/c with Cardio follow-up as long as his chest pain is improved. If the second troponin is positive or there are dynamic EKG changes then transfer to [place]. - Advised one dose of Lovenox 06/20/20 19:04 - Signed out to Dr. 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) COPD: No CHF: No DVT: No Dementia: No Diabetes: No GI Disorders: No Disorders: No HTN: No Hypercholesterolemia: No Liver Disease: No Seizures: No Thyroid Disease: No - Surgical History Abdominal Surgery: No Appendectomy: No Cardiac Surgery: No Cholecystectomy: No Lung Surgery: No Neurologic Surgery: No Orthopedic Surgery: Yes (LEFT KNEE ACL REPAIR 1999,RIGHT KNEE QUAD TENDON REPAIR,RIGHT KNEE MENISCAL) - Immunization History Immunization Up to Date: Yes - Psycho-Social/Smoking History Smoking History: Never smoked Have you smoked in the past 12 months: No Information on smoking cessation initiated: No - Substance Abuse Hx (Audit-C & DAST Scrn) How often the patient has a drink containing alcohol: Monthly or less Number of drinks the patient has on a typical day: 1 or 2 How often the patient has six or more drinks on one occasion: Never Score: In Men: 4 or > Positive; In Women: 3 or > Positive: 1 Screen Result (Pos requires Nsg. Audit-10AR): Negative In the last yr the pt used illegal drug/Rx for NonMed reason: No Score: Yes response is considered Positive: 0 Screen Result (Positive result requires Nsg. DAST-10): Negative *Physical Exam - Vital Signs Last Vital Signs Temp Pulse Resp BP Pulse Ox 98.6 F 76 18 148/106 H 100 06/20/20 16:54 06/20/20 16:54 06/20/20 16:54 06/20/20 16:54 06/20/20 16:54 Heart Score/ECG Review - History History: Moderately suspicious - Electrocardiogram EKG: Non specific repolarization disturbance - Age Age: 45-65 - Risk Factors Risk Factors Heart Score: Yes Hx Hypertension, Yes Hx Obesity Based on the list above the patient has:: 1-2 risk factors - Troponin Troponin: </= normal limit - Score Heart Score - Total: 4 - ECG Intrepretation Comment:: 06/20/20 18:[address] elevations. T-wave inversions in I and AVL that were not present on previous EKG from 2018. Vent rate 74bpm. NV interval 200ms. QRS duration 90ms. QT/QTc: 362/401 ms. ED Treatment Course - LABORATORY CBC & Chemistry Diagram: 06/20/20 17:20 06/20/20 17:20 Discharge - Discharge Information Problems reviewed: No Clinical Impression/Diagnosis: Chest pain Qualifiers: Chest pain type: unspecified Qualified Code(s): R07.9 - Chest pain, unspecified Condition: Stable - Follow up/Referral - Patient Discharge Instructions - Post Discharge Activity
[2020-06-20 17:47] LABS: EOS % 2.8 % (0-4.5); HEMATOCRIT 42.1 % (35.4-49); HEMOGLOBIN 14.1 GM/dl (11.7-16.9); LYMPH % 27.7 % (8-40); MCH 30.9 pg (25.7-33.7); MCHC 33.6 g/dl (32.0-35.9); MEAN PLT VOLUME 10.2 fl (7.5-11.1); MONO % 7.8 % (3.8-10.2); NEUT % 60.8 % (42.8-82.8); PLATELET COUNT 254 K/MM3 (134-434); RBC 4.57 M/mm3 (4.00-5.60); RDW 14.3 % (11.9-15.9); WHITE BLOOD COUNT 6.1 K/mm3 (4.0-10.8)
[2020-06-20 17:55] LABS: ALBUMIN 4.5 g/dl (3.4-5.0); BILIRUBIN,TOTAL 0.6 mg/dl (0.2-1); CALCIUM 9.7 mg/dl (8.5-10); CREATININE 1.6 mg/dl (0.55-1.3); POTASSIUM 3.6 mmol/L (3.5-5.1); TOT PROT 8.6 g/dl (6.4-8.2)
--- NOTE | 2020-06-20 17:56 | PDOC ---
Attending Attestation - Resident Resident Name: Carlyn Austin - ED Attending Attestation I have performed the following: I have examined & evaluated the patient, The case was reviewed & discussed with the resident, I agree w/resident's findings & plan, Exceptions are as noted - HPI HPI: 06/20/20 18:03 49 yo M p/w L sided squeezing, non-radiating, non-exertional chest pain since waking up this morning. States pain did not wake him up from sleep. Reports pain slightly worse with inspiration. Denies SOB, n/v, abd pain, lightheadedness. Denies recent travel. Denies cough, fevers, or any other infectious complaints. - Physicial Exam PE: 06/20/20 17:54 General: well appearing, NAD HEENT: NCAT CHest: CTAB, good air entry, no wheezes rales or rhonchi CVS: + s1 s2, RRR Extremities: warm and well perfused Neuro: speech fluent, face symmetric, gait steady, Aox3, no focal deficits - Medical Decision Making 06/20/20 17:54 49 yo M with chest pain, EKG with new TWI I and aVL, possible ACS. Low suspicion for PNA as patient without any infectious complaints. Also doubt PE. Also possible msk pain. Plan: -labs -cxr -asa -admit to tele obs for chest pain with EKG changes This clinical encounter is taking place during a federal and state health care emergency attributable to the novel [place] Virus pandemic. The [employer] of the Department of Health and Human Services has declared, pursuant to the Public Health Service Act 319F-3 (42 U.S.C. 247d-6d), that a covered persons activities related to medical countermeasures against COVID-19 will be immune from liability under Federal and State law. Spoke with cardiology consult who recommends repeat trop 3 hours from first with repeat EKG. If 2nd trop negative and EKG without dynamic changes patient can be d/ashleigh with cardiology follow up. Patient signed out to night team. Discharge - Discharge Information Problems reviewed: Yes Clinical Impression/Diagnosis: Chest pain Qualifiers: Chest pain type: unspecified Qualified Code(s): R07.9 - Chest pain, unspecified Condition: Stable Disposition: HOME - Follow up/Referral - Patient Discharge Instructions Patient Printed Discharge Instructions: DI for Chest Pain Additional Instructions: It is important that you see a dehydrating press operator as soon as possible Monday would be preferable. Return to the emergency department immediately with ANY new, persistent or worsening symptoms. Continue any medications as previously prescribed by your physician. You should follow up with your primary doctor as soon as possible regarding today's emergency department visit. . Please make sure your doctor reviews the results of your emergency evaluation. Thank you for coming to the Emergency Department today for your care. It was a pleasure to see you today. Please note that your evaluation is INCOMPLETE until you follow-up with your doctor. - Post Discharge Activity
[2020-06-20] MEDS ORDERED: ASPIRIN 81 MG CHEWABLE TABLETS PO ONE (18:05)
[2020-06-20] MEDS ORDERED: ASPIRIN 81 MG CHEWABLE TABLETS ONE (18:13)
[2020-06-20] MEDS ORDERED: NITROGLYCERIN SUBLINGUAL 1/150 0.4 MG TAB SL ONE ×3 (18:16→18:35)
[2020-06-20] MEDS ORDERED: NITROGLYCERIN SUBLINGUAL 1/150 0.4 MG TAB ONE ×3 (18:18→18:35)
[2020-06-20] MEDS ORDERED: ATORVASTATIN CA 80 MG TABLET (FP) PO ONE (18:58)
[2020-06-20] MEDS ORDERED: ENOXAPARIN NA (PORCINE) 100 MG/1 ML DISP.SYRIN SQ ONE ×2 (18:59→19:08)
[2020-06-20] MEDS ORDERED: SODIUM CHLORIDE 1,000 ML IV SCH (19:15)
--- NOTE | 2020-06-20 20:19 | PDOC ---
*Physical Exam - Vital Signs Last Vital Signs Temp Pulse Resp BP Pulse Ox 98.6 F 96 H 19 135/95 99 06/20/20 16:54 06/20/20 19:15 06/20/20 19:15 06/20/20 19:15 06/20/20 19:15 ED Treatment Course - LABORATORY CBC & Chemistry Diagram: 06/20/20 17:20 06/20/20 17:20 - ADDITIONAL ORDERS Additional order review: Laboratory Results 06/20/20 06/20/20 17:20 17:20 Sodium 137 Potassium 3.6 Chloride 101 Carbon Dioxide 26 Anion Gap 10 BUN 21.0 H Creatinine 1.6 H Est GFR (CKD-EPI)AfAm 56.97 Est GFR (CKD-EPI)NonAf 49.15 Random Glucose 93 Calcium 9.7 Total Bilirubin 0.6 AST 44 H ALT 70 H Alkaline Phosphatase 118 H Troponin I 0.03 Total Protein 8.6 H Albumin 4.5 06/20/20 17:20 RBC 4.57 MCV 92.0 MCHC 33.6 RDW 14.3 MPV 10.2 D Neutrophils % 60.8 Lymphocytes % 27.7 Monocytes % 7.8 Eosinophils % 2.8 D - Medications Given in the ED: ED Medications Discontinued Medications Generic Name Dose Route Start Last Admin Trade Name Freq PRN Reason Stop Dose Admin Aspirin 162 mg 06/20/20 18:05 06/20/20 18:27 Asa - PO 06/20/20 18:06 162 mg ONCE ONE Administration Enoxaparin Sodium 100 mg 06/20/20 18:59 06/20/20 19:13 Lovenox - SQ 06/20/20 19:00 100 mg ONCE ONE Administration Nitroglycerin 0.4 mg 06/20/20 18:16 06/20/20 18:20 Nitrostat - SL 06/20/20 18:17 0.4 mg ONCE ONE Administration Nitroglycerin 0.4 mg 06/20/20 18:29 06/20/20 18:28 Nitrostat - SL 06/20/20 18:30 0.4 mg ONCE ONE Administration Nitroglycerin 0.4 mg 06/20/20 18:35 06/20/20 18:37 Nitrostat - SL 06/20/20 18:36 0.4 mg ONCE ONE Administration ED Progress Note - Progress Note Progress Note: 06/20/20 20:18 Care of this patient was transferred to me from Dr. Merritt at 1900 hrs. Patient is a 49-year-old male who came in complaining of approximately 12 hours of chest pain. Patient had some changes on EKG suggestive of inferior lateral possible ischemic changes unknown whether they were old or new. Patient had an initial troponin that was 0.3. Patient will have a repeat troponin III hours after the first and a repeat EKG if both are unchanged patient will be discharged home 06/20/20 21:16 Patient's EKG repeat was unchanged from his first EKG and a repeat troponin is still 0.3. Patient discharged and will follow up with a tanner rotary drum continuous process Monday Discharge - Discharge Information Problems reviewed: Yes Clinical Impression/Diagnosis: Chest pain Qualifiers: Chest pain type: unspecified Qualified Code(s): R07.9 - Chest pain, unspecified Condition: Stable Disposition: HOME - Follow up/Referral - Patient Discharge Instructions Patient Printed Discharge Instructions: DI for Chest Pain Additional Instructions: It is important that you see a tanner rotary drum continuous process as soon as possible Monday would be preferable. Return to the emergency department immediately with ANY new, persistent or worse jennifer symptoms. Continue any medications as previously prescribed by your physician. You should follow up with your primary doctor as soon as possible regarding today's emergency department visit. . Please make sure your doctor reviews the results of your emergency evaluation. Thank you for coming to the Emergency Department today for your care. It was a pleasure to see you today. Please note that your evaluation is INCOMPLETE until you follow-up with your doctor. - Post Discharge Activity
[2020-06-20 20:43] VITALS: BP 148/90; PULSE 82
--- NOTE | 2020-06-21 08:53 | EKG ---
Test Reason : Blood Pressure : / mmHG Vent. Rate : 081 BPM Atrial Rate : 081 BPM P-R Int : 200 ms QRS Dur : 090 ms QT Int : 350 ms P-R-T Axes : 038 021 136 degrees QTc Int : 406 ms NORMAL SINUS RHYTHM T WAVE ABNORMALITY, CONSIDER LATERAL ISCHEMIA ABNORMAL ECG WHEN COMPARED WITH ECG OF 20-JUN-2020 17:07, NO SIGNIFICANT CHANGE WAS FOUND Confirmed by Bianca Gil ([id number]) on 06/21/2020 8:52:51 AM Referred By: Perez YANES Confirmed By:Bianca Gil
--- NOTE | 2020-06-22 09:23 | EKG ---
Test Reason : Blood Pressure : / mmHG Vent. Rate : 074 BPM Atrial Rate : 074 BPM P-R Int : 200 ms QRS Dur : 090 ms QT Int : 362 ms P-R-T Axes : 031 006 126 degrees QTc Int : 401 ms NORMAL SINUS RHYTHM T WAVE ABNORMALITY, CONSIDER LATERAL ISCHEMIA ABNORMAL ECG WHEN COMPARED WITH ECG OF 13-JUN-2018 10:17, T WAVE INVERSION NOW EVIDENT IN LATERAL LEADS Confirmed by Jailene Webb ([id number]) on 06/22/2020 9:23:16 AM Referred By: Confirmed By:Jailene Webb
== END 2020-06-20 21:36 | disposition home or self-care (01) ==
LOC: FER 16:52
DX: R07.9 Chest pain, unspecified (principal)
CPT/HCPCS: 36415; 71046-TC-FY; 80053; 80074; 83036; 84484; 85025; 93005; 99285-25; U0003

== ENCOUNTER 2023-03-03 14:05 | Emergency (ER) | payer OTHER, BC ==
[2023-03-03] MEDS ORDERED: LIDOCAINE 5% TOPICAL PATCH TP ONE (14:42)
[2023-03-03] MEDS ORDERED: DEXAMETHASONE SOD PHOSPHATE 10 MG/1 ML VIAL IVPUSH ONE (14:42)
[2023-03-03] MEDS ORDERED: diazePAM 5 MG TABLET PO ONE (14:42)
[2023-03-03 14:43] VITALS: BP 143/72; PULSE 81; RESP 16; TEMP 97.8; BMI 30.7
[2023-03-03] MEDS ORDERED: ACETAMINOPHEN 1000 MG/100 ML BAG IVPB ONE (14:43)
[2023-03-03] MEDS ORDERED: DEXAMETHASONE SOD PHOSPHATE/PF 10 MG/ML SDV ONE (14:46)
[2023-03-03] MEDS ORDERED: LIDOCAINE 5% TOPICAL PATCH ONE (14:46)
[2023-03-03] MEDS ORDERED: ACETAMINOPHEN INJECTION 100 ML IVPB ONE (14:46)
[2023-03-03] MEDS ORDERED: diazePAM 5 MG TABLET ONE (14:46)
[2023-03-03] MEDS ORDERED: LIDOCAINE PATCH REMOVAL MC SCH (22:00)
== END 2023-03-03 16:57 | disposition home or self-care (01) ==
LOC: FER 14:05
PROC: 3E033NZ Introduction of Analgesics, Hypnotics, Sedatives into Peripheral Vein, Percutaneous Approach (ICD-10-PCS; principal; 2023-03-03)
PROC: 3E033GC Introduction of Other Therapeutic Substance into Peripheral Vein, Percutaneous Approach (ICD-10-PCS; 2023-03-03)
DX: S39.012A Strain of muscle, fascia and tendon of lower back, initial encounter (principal); Y99.9 Unspecified external cause status
CPT/HCPCS: 72131-TC; 99284-25; J1100

== ENCOUNTER 2023-07-22 11:28 | Observation (INO) | payer BC, OTHER ==
[2023-07-22] MEDS ORDERED: KETOROLAC TROMETHAMINE 15 MG/ML VIAL IVPUSH ONE (12:09)
[2023-07-22] MEDS ORDERED: ACETAMINOPHEN 1000 MG/100 ML BAG IVPB ONE (12:09)
[2023-07-22] MEDS ORDERED: morphine CARPU-JECT 4 MG/1 ML DISP.SYRIN IVPUSH ONE (12:10)
[2023-07-22] MEDS ORDERED: KETOROLAC TROMETHAMINE 15 MG/ML VIAL ONE (12:32)
[2023-07-22] MEDS ORDERED: ACETAMINOPHEN INJECTION 100 ML IVPB ONE (12:32)
[2023-07-22] MEDS ORDERED: morphine SULFATE 4 MG/ML VIAL ONE (12:32)
[2023-07-22] MEDS ORDERED: morphine SULFATE 4 MG/ML VIAL IVPUSH PRN (17:08)
[2023-07-22] MEDS ORDERED: ACETAMINOPHEN 1000 MG/100 ML BAG IVPB PRN (17:09)
[2023-07-22 17:57] VITALS: BMI 29.1
[2023-07-22] MEDS ORDERED: MELATONIN 5 MG TABLETS PO PRN (21:11)
[2023-07-22] MEDS ORDERED: AMITRIPTYLINE HCL 75 MG TABLET PO SCH (22:00)
[2023-07-23] MEDS ORDERED: oxyCODONE HCL 5 MG TABLET PO PRN ×2 (07:32)
[2023-07-23] MEDS ORDERED: HYDROmorphone HCl 2 MG/ML VIAL IVPUSH PRN (07:36)
[2023-07-23] MEDS: IBUPROFEN 600 MG TABLET (FP) PO SCH ×3 (07:55→19:30)
[2023-07-23] MEDS: ACETAMINOPHEN 325 MG TABLET (FP) PO SCH ×3 (07:56→19:30)
[2023-07-23 08:57] LABS: HEMATOCRIT 33.7 % (35.4-49); HEMOGLOBIN 11.2 G/dL (11.7-16.9); MCH 31.1 pg (25.7-33.7); MCHC 33.2 g/dl (32.0-35.9); MEAN CELL VOLUME 93.5 fl (80-96); MEAN PLT VOLUME 10.1 fl (7.5-11.1); PLATELET COUNT 327.5 10^3/uL (134-434); RDW 15.7 % (11.9-15.9); WHITE BLOOD COUNT 9.2 10^3/uL (4.0-10.8)
[2023-07-23 10:02] LABS: ALBUMIN 3.5 g/dl (3.4-5.0); BLOOD UREA NITROGEN 21.4 mg/dl (7-18); CALCIUM 8.8 mg/dl (8.5-10.1); POTASSIUM 4.5 mmol/L (3.5-5.1); SGOT/AST 20.9 U/L (15-37); SGPT/ALT 38.3 U/L (7-52); TOT PROT 6.2 g/dl (6.4-8.2)
[2023-07-23] MEDS: GABAPENTIN 100 MG CAPSULE PO SCH ×2 (10:33→21:13)
[2023-07-23 11:27] LABS: PLATELET ESTIMATE ADEQUATE
[2023-07-23] MEDS ORDERED: SENNOSIDES 8.6MG TABLET (FP) PO PRN (11:36)
[2023-07-23] MEDS: POLYETHYLENE GLYCOL (HEALTHYLAX) 3350 17 GM PACKET PO SCH ×2 (12:44→21:14)
[2023-07-23 13:06] LABS: CREATININE 1.6 mg/dl (0.6-1.3)
[2023-07-23 14:06] LABS: BILIRUBIN,TOTAL 0.7 mg/dL (0.2-1)
[2023-07-23] MEDS: HYDROmorphone HCL 2 MG TABLET PO PRN (14:29)
[2023-07-23] MEDS ORDERED: AMITRIPTYLINE HCL 75 MG TABLET PO SCH (18:00)
[2023-07-23] MEDS ORDERED: AMITRIPTYLINE HCL 25 MG TABLET PO SCH (18:30)
[2023-07-24] MEDS: ACETAMINOPHEN 325 MG TABLET (FP) PO SCH ×3 (01:30→14:09)
[2023-07-24] MEDS: IBUPROFEN 600 MG TABLET (FP) PO SCH ×3 (02:30→14:09)
[2023-07-24] MEDS: HYDROmorphone HCL 2 MG TABLET PO PRN (06:13)
[2023-07-24 06:20] VITALS: RESP 18
[2023-07-24 08:54] LABS: HEMATOCRIT 35.8 % (35.4-49); HEMOGLOBIN 11.6 G/dL (11.7-16.9); MCH 30.7 pg (25.7-33.7); MCHC 32.5 g/dl (32.0-35.9); MEAN CELL VOLUME 94.4 fl (80-96); MEAN PLT VOLUME 9.7 fl (7.5-11.1); PLATELET COUNT 396.3 10^3/uL (134-434); RBC 3.79 10^6/uL (4.00-5.60); RDW 16.4 % (11.9-15.9); WHITE BLOOD COUNT 6.1 10^3/uL (4.0-10.8)
[2023-07-24 09:54] LABS: BLOOD UREA NITROGEN 22.4 mg/dl (7-18); CREATININE 1.6 mg/dl (0.6-1.3); POTASSIUM 4.7 mmol/L (3.5-5.1)
[2023-07-24 14:47] VITALS: BP 133/78; PULSE 80; TEMP 98.1
[2023-07-24] MEDS: POLYETHYLENE GLYCOL (HEALTHYLAX) 3350 17 GM PACKET PO SCH (15:07)
[2023-07-24] MEDS: GABAPENTIN 100 MG CAPSULE PO SCH (15:07)
== END 2023-07-24 15:20 | disposition home or self-care (01) ==
LOC: FER 11:28 → FM/S 15:33
PROVIDERS: ADMIT Internal Medicine; ATTEND Internal Medicine
PROC: 3E033NZ Introduction of Analgesics, Hypnotics, Sedatives into Peripheral Vein, Percutaneous Approach (ICD-10-PCS; principal; 2023-07-22)
PROC: 3E0333Z Introduction of Anti-inflammatory into Peripheral Vein, Percutaneous Approach (ICD-10-PCS; 2023-07-22)
DX: G89.18 Other acute postprocedural pain (principal); Z98.890 Other specified postprocedural states; K21.9 Gastro-esophageal reflux disease without esophagitis; N18.30 Chronic kidney disease, stage 3 unspecified; G89.29 Other chronic pain
CPT/HCPCS: 36415; 80048; 80053; 85027; 97116-GP; 99285-25; G0378

== ENCOUNTER 2023-08-17 08:58 | Day surgery (SDC) | payer OTHER ==
[2023-08-15 08:58] VITALS: BMI 29.0
[2023-08-17] MEDS ORDERED: PROPOFOL 20 ML ONE (10:25)
[2023-08-17] MEDS ORDERED: MIDAZOLAM HCL 2 MG/2 ML SINGLE DOSE VIAL ONE (10:25)
[2023-08-17] MEDS ORDERED: DEXAMETHASONE SOD PHOSPHATE 4 MG/1 ML VIAL ONE (10:25)
[2023-08-17] MEDS ORDERED: ONDANSETRON 4 MG/2 ML VIAL ONE (10:25)
[2023-08-17] MEDS ORDERED: LIDOCAINE HCL/PF 2% SDV 5ML VIAL ONE (10:25)
[2023-08-17] MEDS ORDERED: ceFAZolin SODIUM 1 GM VIAL ONE (10:25)
[2023-08-17] MEDS ORDERED: LIDOCAINE 1% P/F 10 MG/ML VIAL ONE (11:21)
[2023-08-17] MEDS ORDERED: BUPIVACAINE HCL/PF 0.5% (5 MG/ML) 30 ML VIAL IJ ONE (11:21)
[2023-08-17] MEDS ORDERED: EPINEPHrine 1:1,000 1,000 MCG/ML ML ONE (12:53)
[2023-08-17] MEDS ORDERED: oxyCODONE HCL 5 MG TABLET PO PRN ×2 (13:18)
[2023-08-17] MEDS ORDERED: ONDANSETRON 4 MG/2 ML VIAL IVPUSH PRN (13:18)
[2023-08-17] MEDS ORDERED: LACTATED RINGERS SOLUTION 1,000 ML IV SCH (13:30)
[2023-08-17 14:22] VITALS: TEMP 97.8
[2023-08-17 14:44] VITALS: BP 136/90; PULSE 80; RESP 16
== END 2023-08-17 15:50 | disposition home or self-care (01) ==
LOC: FASU 08:58
PROVIDERS: ATTEND Orthopaedic Surgery
PROC: 0LS44ZZ Reposition Left Upper Arm Tendon, Percutaneous Endoscopic Approach (ICD-10-PCS; 2023-08-17)
PROC: 0RNK4ZZ Release Left Shoulder Joint, Percutaneous Endoscopic Approach (ICD-10-PCS; 2023-08-17)
PROC: 0PBB4ZZ Excision of Left Clavicle, Percutaneous Endoscopic Approach (ICD-10-PCS; 2023-08-17)
PROC: 0RBK4ZZ Excision of Left Shoulder Joint, Percutaneous Endoscopic Approach (ICD-10-PCS; principal; 2023-08-17 12:17)
DX: M75.102 Unspecified rotator cuff tear or rupture of left shoulder, not specified as traumatic (principal); M66.811 Spontaneous rupture of other tendons, right shoulder; M75.02 Adhesive capsulitis of left shoulder; M75.42 Impingement syndrome of left shoulder; M19.012 Primary osteoarthritis, left shoulder; S43.432A Superior glenoid labrum lesion of left shoulder, initial encounter; X58.XXXA Exposure to other specified factors, initial encounter; Y93.9 Activity, unspecified; Y92.9 Unspecified place or not applicable
CPT/HCPCS: 94760; C1713

== ENCOUNTER 2024-05-09 22:02 | Emergency (ER) | payer BC, OTHER ==
[2024-05-09 22:07] VITALS: RESP 16; BMI 29.2
[2024-05-09 22:26] VITALS: BP 119/76; PULSE 81; TEMP 98.1
[2024-05-09] MEDS ORDERED: CYCLOBENZAPRINE HCL 5 MG TABLET ONE (22:28)
[2024-05-09] MEDS ORDERED: predniSONE 20 MG TABLET (UD) ONE (22:28)
[2024-05-09] MEDS ORDERED: KETOROLAC TROMETHAMINE 60 MG/2 ML VIAL ONE (22:28)
[2024-05-09] MEDS ORDERED: LIDOCAINE 5% TOPICAL PATCH ONE (22:29)
[2024-05-09] MEDS: LIDOCAINE 5% TOPICAL PATCH TP ONE (22:34)
[2024-05-09] MEDS: predniSONE 20 MG TABLET (UD) PO ONE (22:34)
[2024-05-09] MEDS: KETOROLAC TROMETHAMINE 60 MG/2 ML VIAL IM ONE (22:34)
[2024-05-09] MEDS: CYCLOBENZAPRINE HCL 10 MG TABLET (FP) PO ONE (22:34)
[2024-05-10] MEDS ORDERED: LIDOCAINE PATCH REMOVAL MC SCH (10:00)
== END 2024-05-09 22:44 | disposition home or self-care (01) ==
LOC: FER 22:02
PROC: 3E0133Z Introduction of Anti-inflammatory into Subcutaneous Tissue, Percutaneous Approach (ICD-10-PCS; principal; 2024-05-09)
DX: M54.42 Lumbago with sciatica, left side (principal)
CPT/HCPCS: 99284-25

== ENCOUNTER 2024-06-09 18:15 | Inpatient (IN) | payer OTHER, BC ==
[2024-06-09 18:59] LABS: HEMOGLOBIN 14.6 G/dL (11.7-16.9); MCH 30.7 pg (25.7-33.7); MCHC 33.2 g/dl (32.0-35.9); MEAN CELL VOLUME 92.5 fl (80-96); MEAN PLT VOLUME 10.7 fl (7.5-11.1); PLATELET COUNT 251.9 10^3/uL (134-434); RBC 4.76 10^6/uL (4.00-5.60); RDW 15.5 % (11.9-15.9); WHITE BLOOD COUNT 6.6 10^3/uL (4.0-10.8)
[2024-06-09 19:23] LABS: ALBUMIN 4.1 g/dl (3.4-5.0); ALK PHOS 80 U/L (45-117); ANION GAP 9 mmol/L (4-13); BILIRUBIN,TOTAL 0.5 mg/dl (0.2-1); CALCIUM 9.4 mg/dl (8.5-10.1); CHLORIDE 105 mmol/L (98-107); CO2 25 mmol/L (21-32); CREATININE 1.9 mg/dl (0.6-1.3); GLUCOSE,RANDOM 99 mg/dl (74-106); MAGNESIUM 1.9 mg/dL (1.8-2.4); PHOSPHOROUS 4.7 (2.5-4.9); SGOT/AST 53 U/L (15-37); SGPT/ALT 60 U/L (7-52); SODIUM 139 mmol/L (136-145); TOT PROT 6.8 g/dl (6.4-8.2)
[2024-06-09 19:26] LABS: PLATELET ESTIMATE ADEQUATE
[2024-06-09] MEDS: SODIUM CHLORIDE 0.9% 500 ML INFUS.BAG IV ONE (19:35)
[2024-06-09] MEDS ORDERED: ASPIRIN 81 MG CHEWABLE TABLETS ONE (20:06)
[2024-06-09] MEDS: ASPIRIN 81 MG CHEWABLE TABLETS PO ONE (20:08)
[2024-06-09 23:08] VITALS: BMI 33.3
[2024-06-09] MEDS: SODIUM CHLORIDE 1,000 ML IV SCH (23:15)
[2024-06-10 02:13] VITALS: RESP 18
[2024-06-10 09:34] VITALS: BP 150/104; PULSE 81; TEMP 98.4
[2024-06-10 09:46] LABS: BASO % 0.4 % (0-2.0); EOS % 2.6 % (0-4.5); HEMATOCRIT 39.3 % (35.4-49); HEMOGLOBIN 13.6 GM/dL (11.7-16.9); LYMPH % 23.3 % (8-40); MCH 31.2 pg (25.7-33.7); MCHC 34.5 g/dl (32.0-35.9); MEAN CELL VOLUME 90.3 fl (80-96); MEAN PLT VOLUME 10.5 fl (7.5-11.1); MONO % 11.4 % (3.8-10.2); NEUT % 62.3 % (42.8-82.8); PLATELET COUNT 224 10^3/uL (134-434); RBC 4.36 M/mm3 (4.00-5.60); RDW 16.1 % (11.9-15.9)
[2024-06-10 10:13] LABS: CREATININE 1.7 mg/dl (0.6-1.3); POTASSIUM 4.2 mmol/L (3.5-5.1)
[2024-06-10] MEDS ORDERED: AMITRIPTYLINE HCL 75 MG TABLET PO SCH (22:00)
== END 2024-06-10 13:09 | disposition home or self-care (01) | DRG 558 ==
LOC: FER 18:15 → FM/S 21:44 → UNDOADMIN 21:44
PROVIDERS: ADMIT Internal Medicine; ATTEND Internal Medicine
DX: M62.82 Rhabdomyolysis (principal); N18.30 Chronic kidney disease, stage 3 unspecified; R79.89 Other specified abnormal findings of blood chemistry; M54.50 Low back pain, unspecified; R63.5 Abnormal weight gain; Z68.33 Body mass index [BMI] 33.0-33.9, adult; M25.473 Effusion, unspecified ankle; M79.89 Other specified soft tissue disorders; Z87.820 Personal history of traumatic brain injury
CPT/HCPCS: 36415; 71046-TC-FY; 80048; 80053; 80061; 81003; 82550; 82553; 83735; 83880; 84100; 84443; 84484; 85025; 85027; 87086; 93005; 99285-25